=== PATIENT | female | born 1945 ===

== ENCOUNTER 2016-10-15 16:47 | Emergency (ER) | payer MEDICARE, SELFPAY ==
[2016-10-15 16:47] VITALS: BMI 28.3
[2016-10-15 17:15] VITALS: RESP 20
--- NOTE | 2016-10-15 17:57 | C.PDOC ---
History Of Present Illness <Kenton Floyd DO - Last Filed: 10/15/16 18:47> <MiguesavannahDaniel - Last Filed: 10/15/16 19:21> 71 year old patient, with a past medical history of hypertension, diabetes, osteoporosis, and hypercholesterolemia, presents to the ED complaining of bilateral hip and lower back pain s/p fall. Patient states she slipped on water and landed on her back. She denies any symptoms prior to the fall, head injury or loss of consciousness. (Lamonik VANGKenton) - HPI History Per: Patient History/Exam Limitations: no limitations Onset/Duration Of Symptoms: Mins (prior to arrival) Location Of Injury: Right: Hip, Left: Hip, Posterior: Back Severity: Mild Pain Scale Rating Of: 3 Recent travel outside of the [place]: No - Fall Fall:Prior To Injury: Slipped <Kenton Floyd DO - Last Filed: 10/15/16 18:47> <TanyaGinettemaris - Last Filed: 10/15/16 19:21> - HPI Time Seen by Provider: 10/15/16 17:44 Chief Complaint (Nursing): Trauma Past Medical History Reviewed: Historical Data, Nursing Documentation, Vital Signs - Medical History PMH: Diabetes, HTN, Hypercholesterolemia, Osteoporosis Family History: States: Unknown Family Hx - Social History Hx Tobacco Use: No Hx Alcohol Use: No Hx Substance Use: No - Immunization History Hx Tetanus Toxoid Vaccination: No Hx Influenza Vaccination: Yes Hx Pneumococcal Vaccination: Yes <Kenton Floyd DO - Last Filed: 10/15/16 18:47> Review Of Systems Except As Marked, All Systems Reviewed And Found Negative. Constitutional: Negative for: Other (head injury) Musculoskeletal: Positive for: Back Pain (lower), Other (bilateral hip pain) Neurological: Negative for: Other (loss of consciousness) <Kenton Floyd DO - Last Filed: 10/15/16 18:47> Physical Exam - Physical Exam Appears: Non-toxic, No Acute Distress Skin: Warm, Dry Head: Atraumatic, Normacephalic Eye(s): bilateral: Normal Inspection, PERRL, EOMI Neck: Normal ROM, No Midline Cervical Tenderness, No Paracervical Tenderness, Supple Chest: Symmetrical, No Tenderness Cardiovascular: Rhythm Regular Respiratory: Normal Breath Sounds, No Rales, No Rhonchi, No Wheezing Gastrointestinal/Abdominal: Soft, No Tenderness Back: No CVA Tenderness, No Vertebral Tenderness, Other (diffuse tenderness to the lumbosacral area and bilateral hip area; patient is able to flex hip with pain; (-)internal or external rotation of hips bilaterally) Extremity: Normal ROM Neurological/Psych: Oriented x3, Normal Speech, Normal Cognition, Normal Motor, Normal Sensation <Kenton Floyd DO - Last Filed: 10/15/16 18:47> ED Course And Treatment O2 Sat by Pulse Oximetry: 100 (room air) Pulse Ox Interpretation: Normal Progress Note: Plan: Tylenol, Flexeril, Hip with pelvis x-ray, LS spine x-ray <Kenton Floyd DO Last Filed: 10/15/16 18:47> Pulse Ox Interpretation: Normal - Other Rad pelvis/hips X-Ray: Interpreted by Me, Viewed By Me Interpretation: no fx or dislocation l/s X-Ray: Interpreted by Me, Viewed By Me Interpretation: no fx or dislocation Reevaluation Time: 19:14 Reassessment Condition: Improved <Daniel Martínez - Last Filed: 10/15/16 19:21> Disposition <Kenton Floyd DO Last Filed: 10/15/16 18:47> Counseled Patient/Family Regarding: Studies Performed, Diagnosis, Need For Followup - Disposition Disposition Time: 19:00 <Daniel Martínez - Last Filed: 10/15/16 19:21> - Disposition Referrals: Holli Back MD [Staff Provider] - Condition: FAIR Prescriptions: Cyclobenzaprine [Cyclobenzaprine HCl] 10 mg PO TID PRN #10 tab PRN Reason: spasms Instructions: Acute Low Back Pain (DC) Print Language: ENGLISH - Clinical Impression Clinical Impression: Back pain, Contusion of back, Lumbar strain Critical Care Time - Scribe Statement The provider has reviewed the documentation as recorded by the Scribe <Kenton Floyd DO - Last Filed: 10/15/16 18:47> <Daniel Martínez Last Filed: 10/15/16 19:21> - Scribe Statement Zeinab Barrera (Kenton Floyd DO) Provider Attestation: All medical record entries made by the Scribe were at my direction and personally dictated by me. I have reviewed the chart and agree that the record accurately reflects my personal performance of the history, physical exam, medical decision making, and the department course for this patient. I have also personally directed, reviewed, and agree with the discharge instructions and disposition. (Everett VANG,Kenton)
[2016-10-15 19:46] VITALS: BP 173/91; PULSE 78; TEMP 97.4; O2SAT 99
--- NOTE | 2016-10-16 08:31 | RAD ---
PROCEDURE: Radiographs of the Lumbar Spine. HISTORY: r/o fx COMPARISON: No prior. FINDINGS: BONES: Normal alignment. No listhesis. No fracture. DISC SPACES: Unremarkable. OTHER FINDINGS: None. IMPRESSION: Unremarkable radiographs of the lumbar spine.
--- NOTE | 2016-10-16 08:31 | RAD ---
PROCEDURE: Radiographs of the pelvis and bilateral hips HISTORY: r/o fx COMPARISON: None. FINDINGS: BONES: Pelvis: Unremarkable. Right hip:Unremarkable. Left hip:Unremarkable. JOINTS: Right hip: Unremarkable. Left hip: Unremarkable. Sacroiliac Joints: Unremarkable. Pubic symphysis: Unremarkable. SOFT TISSUES: Normal. OTHER FINDINGS: None. IMPRESSION: Unremarkable radiographs of the hips and pelvis.
== END 2016-10-15 19:45 | disposition home or self-care (01) ==
LOC: C.ER 16:47
DX: S39.012A Strain of muscle, fascia and tendon of lower back, initial encounter (principal); S30.0XXA Contusion of lower back and pelvis, initial encounter; W01.0XXA Fall on same level from slipping, tripping and stumbling without subsequent striking against object, initial encounter; M81.0 Age-related osteoporosis without current pathological fracture; I10 Essential (primary) hypertension; E78.00 Pure hypercholesterolemia, unspecified; E11.9 Type 2 diabetes mellitus without complications

== ENCOUNTER 2017-04-21 15:34 | Inpatient (IN) | payer MEDICAID, MEDICARE, OTHER ==
[2017-04-21 16:33] VITALS: BMI 37.1
[2017-04-21] MEDS ORDERED: Dextrose 50% SYRINGE Inj (50 ml) IVP STA ×2 (17:00)
--- NOTE | 2017-04-21 17:08 | C.PDOC ---
History Of Present Illness 71 yr old female with PMhx of CAD, s/p SC/PCI 5 years ago, HTN and DM, sent to the ER by Dr. Bustamante for an episode of left sided chest pain during the siderographer. CP was pressurelike, raidated to her back and left arm, and was associated with mild SOB. Episode lasted approx 20 minutes. Patient currently denies chest pain and SOB, fever, cough, nausea, vomiting, abdominal pain. PMD Dr. Back Time Seen by Provider: 04/21/17 15:58 Chief Complaint (Nursing): Chest Pain History Per: Patient History/Exam Limitations: no limitations Onset/Duration Of Symptoms: Sudden Onset (Since morning) Current Symptoms Are (Timing): Gone Severity: Moderate Quality: Pressure, "Pain" Associated Symptoms: Dyspnea Past Medical History Reviewed: Historical Data, Nursing Documentation, Vital Signs Vital Signs: Last Vital Signs Temp 97.8 F 04/21/17 16:40 Pulse 76 04/21/17 18:38 Resp 20 04/21/17 18:38 BP 144/67 04/21/17 18:38 Pulse Ox 100 04/21/17 18:38 - Medical History PMH: Diabetes, HTN, Hypercholesterolemia, Osteoporosis - [facility] Procedures CORONAR ARTERIOGR-2 CATH (03/26/14) INSERTION OF TWO VASCULAR STENTS (03/26/14) INSRT OF DRUG-ELUTING CORON ARTERY STENTS(S) (03/26/14) LEFT HEART CARDIAC CATH (03/26/14) LT HEART ANGIOCARDIOGRAM (03/26/14) PERCUTANEOUS TRANSLUMINAL CORONARY ANGIOPLASTY [PTCA] (03/26/14) PROCEDURE ON SINGLE VESSEL (03/26/14) PROCTOTOMY (11/13/13) Family History: States: No Known Family Hx - Social History Hx Tobacco Use: No Hx Alcohol Use: No Hx Substance Use: No - Immunization History Hx Tetanus Toxoid Vaccination: No Hx Influenza Vaccination: Yes Hx Pneumococcal Vaccination: Yes Review Of Systems Except As Marked, All Systems Reviewed And Found Negative. Constitutional: Negative for: Fever Cardiovascular: Positive for: Chest Pain (None now) Respiratory: Positive for: Shortness of Breath (None now). Negative for: Cough Gastrointestinal: Negative for: Nausea, Vomiting, Abdominal Pain, Diarrhea Skin: Negative for: Rash Neurological: Negative for: Weakness, Numbness Physical Exam - Physical Exam Appears: Well, Non-toxic, No Acute Distress, Other ((+) Speaking in full sentences) Skin: Warm, Dry, No Rash Head: Normacephalic Oral Mucosa: Moist Cardiovascular: Rhythm Regular Respiratory: Rales (Mild rales at the bases), No Rhonchi, No Wheezing Gastrointestinal/Abdominal: Normal Exam, Bowel Sounds, Soft, No Tenderness Extremity: Normal ROM, No Pedal Edema, No Calf Tenderness Pulses: Left Dorsalis Pedis: Normal, Right Dorsalis Pedis: Normal Neurological/Psych: Oriented x3 ED Course And Treatment - Laboratory Results Result Diagrams: 04/21/17 17:41 04/21/17 17:17 ECG: Interpreted By Me, Viewed By Me ECG Rhythm: Sinus Rhythm Interpretation Of ECG: Normal axis. No acute ST/T wave chanegs. Rate From EC (BPM) O2 Sat by Pulse Oximetry: 98 (RA) Pulse Ox Interpretation: Normal - Radiology CXR: Interpreted by Me, Viewed By Me CXR Interpretation: Yes: No Acute Disease. No: Infiltrates Progress Note: PLAN: Blood work, CXR, EKG ordered and reviewed. Patient is ASA allergic - Plavix ordered. - Physician Consult Information Physician Contacted: Holli Back Outcome Of Conversation: Discussed patient with PMD, who agrees with telemetry admisison with Dr. Bustamante for cardiology. Disposition - Disposition Forms: [place] (Welsh) - Scribe Statement The provider has reviewed the documentation as recorded by the Scribe Sade Flores Provider Attestation: All medical record entries made by the Scribe were at my direction and personally dictated by me. I have reviewed the chart and agree that the record accurately reflects my personal performance of the history, physical exam, medical decision making, and the department course for this patient. I have also personally directed, reviewed, and agree with the discharge instructions and disposition.
[2017-04-21 17:46] LABS: BASO # 0.1 K/uL (0.0-0.2); BASO % 0.9 % (0.0-2.0); EOS # 0.3 K/uL (0.0-0.7); EOS % 2.9 % (0.0-4.0); HEMATOCRIT 31.9 % (34.0-47.0); LYMPH # 2.3 K/uL (1.0-4.3); LYMPH % 21.2 % (20.0-40.0); MEAN CELL VOLUME 80.1 fL (81.0-99.0); MEAN CORPUSCULAR HEMOGLOBIN 26.5 pg (27.0-31.0); MEAN CORPUSCULAR HGB CONC 33.1 g/dL (33.0-37.0); MEAN PLATELET VOLUME 9.8 fL (7.2-11.7); MONO # 0.5 K/uL (0.0-0.8); MONO % 4.7 % (0.0-10.0); RED CELL DISTRIBUTION WIDTH 15.2 % (11.5-14.5); WHITE BLOOD COUNT 10.6 K/uL (4.8-10.8)
[2017-04-21 19:02] LABS: ALB/GLOB RATIO 1.4 (1.0-2.1); ALKALINE PHOSPHATASE 91 U/L (38-126); ALT/SGPT 32 U/L (9-52); AST/SGOT 18 U/L (14-36); BILIRUBIN,TOTAL 0.8 mg/dL (0.2-1.3); BLOOD UREA NITROGEN 18 mg/dL (7-17); CALCIUM 8.6 mg/dl (8.6-10.4); CARBON DIOXIDE 22 mmol/L (22-30); CHLORIDE 95 mmol/L (98-107); GFR AFRICAN-AMERICAN > 60; GLUCOSE,RANDOM 308 mg/dL (65-105); POTASSIUM 3.7 mmol/L (3.6-5.2); SODIUM 132 mmol/L (132-148); TOTAL PROTEIN 7.6 g/dL (6.3-8.3)
[2017-04-21] MEDS ORDERED: (Novolog) Insulin Aspart, Recombinant 100 u/ml 10 ml vial ONE (22:33)
[2017-04-21] MEDS: (Novolog) Insulin Aspart, Recombinant 100 u/ml 10 ml vial SC SCH (22:38)
[2017-04-22 01:48] LABS: TROPONIN I 0.014 ng/mL (0.00-0.120)
[2017-04-22 05:37] LABS: BASO # 0.1 K/uL (0.0-0.2); BASO % 0.7 % (0.0-2.0); EOS # 0.4 K/uL (0.0-0.7); EOS % 4.3 % (0.0-4.0); HEMATOCRIT 33.8 % (34.0-47.0); LYMPH # 2.1 K/uL (1.0-4.3); LYMPH % 24.2 % (20.0-40.0); MEAN CELL VOLUME 80.1 fL (81.0-99.0); MEAN CORPUSCULAR HEMOGLOBIN 27.3 pg (27.0-31.0); MEAN PLATELET VOLUME 9.9 fL (7.2-11.7); MONO # 0.5 K/uL (0.0-0.8); RED CELL DISTRIBUTION WIDTH 14.9 % (11.5-14.5); WHITE BLOOD COUNT 8.6 K/uL (4.8-10.8)
[2017-04-22 06:08] LABS: IRON 44 ug/dL (37-170)
[2017-04-22 06:33] LABS: BLOOD UREA NITROGEN 17 mg/dL (7-17); CARBON DIOXIDE 25 mmol/L (22-30); CHLORIDE 98 mmol/L (98-107); CHOLESTEROL 135 mg/dL (0-199); GFR AFRICAN-AMERICAN > 60; GLUCOSE,RANDOM 232 mg/dL (65-105); POTASSIUM 3.8 mmol/L (3.6-5.2); SODIUM 133 mmol/L (132-148)
[2017-04-22] MEDS ORDERED: Sodium Chloride 0.45% 1,000 ML IV SCH (08:45)
--- NOTE | 2017-04-22 08:56 | RAD ---
PROCEDURE: CHEST RADIOGRAPH, 1 VIEW HISTORY: cp COMPARISON: Chest radiograph dated 11/13/2016. FINDINGS: LUNGS: Clear. PLEURA: No pneumothorax or pleural fluid seen. CARDIOVASCULAR: Atherosclerotic aortic calcifications. Unremarkable cardiomediastinal silhouette. OSSEOUS STRUCTURES: Degenerative changes. VISUALIZED UPPER ABDOMEN: Normal. OTHER FINDINGS: None. IMPRESSION: No active disease.
[2017-04-22] MEDS: (Novolog) Insulin Aspart, Recombinant 100 u/ml 10 ml vial SC SCH ×4 (09:08→21:35)
[2017-04-22] MEDS ORDERED: Home Med 1 UNIT (Sitagliptin Phos/Metformin Hcl [Janumet 50-1,000 Mg Tablet] 1 TAB) PO SCH (10:00)
[2017-04-22] MEDS ORDERED: Enoxaparin 40 mg Syringe SC SCH (10:00)
[2017-04-22] MEDS ORDERED: (Lantus) Insulin Glargine, Recombinant SC SCH (10:00)
[2017-04-22] MEDS: Enoxaparin 30 mg Syringe SC SCH (10:12)
[2017-04-22 10:18] LABS: TROPONIN I 0.017 ng/mL (0.00-0.120)
[2017-04-22] MEDS: Pantoprazole 40 mg EC Tab PO SCH (10:25)
[2017-04-22] MEDS ORDERED: (Novolog) Insulin Aspart, Recombinant 100 u/ml 10 ml vial ONE (11:43)
--- NOTE | 2017-04-22 16:40 | CP.PCM.HP ---
History of Present Illness - History of Present Illness History of Present Illness: CC: chest pain z HPI; Pt is a 71 year old female with ho of [place] who was went by Dr. Bustamante from his office for eval of chest pain. PHMX. Atopic dermatitis Hypertension Polyosteoarthritis Vitamin D Deff Acute Gastritis Anxiety Type 2 DM Hypercholesterolemia Fatty Liver Proteinuria Osteoporosis Chronic Kidney Disease Other specified abdominal uterine and vaginal bleeding Athscl heart disease of [place] Coronary Artery w/o ang pctrs Wedge compression fracture of T11-T12 vertebra Fam HX: Allergies: Aspirin Tramadol Social HX: Neg. Smoking Neg. ETOH Neg. Drugs Current Meds: Janumet 50mg-1,000mg 1 tab po BID Chlortalidone 25 mg 1 tab po qd Crestor 10 mg 1 tab po qhs Flovent HFA 220 mcg inhaler 2 puffs inhale BID Singulair 10 mg 1 tab po QD Ventolin HFA 90 mcg inhaler 1-2 puffs inhale 4x a day Levemir 100 unit/ml inject 40 units below the skin BID Amaryl 4mg 1 tab po BID Present on Admission - Present on Admission Any Indicators Present on Admission: No Review of Systems - Constitutional Constitutional: absent: Fatigue, Fever, Headache, Night Sweats - EENT Eyes: absent: Diplopia - Cardiovascular Cardiovascular: Chest Pain with Activity. absent: Rapid Heart Rate - Respiratory Respiratory: absent: Cough, Hemoptysis Past Patient History - Past Medical History & Family History Past Medical History?: Yes - Past Social History Smoking Status: Never Smoked - CARDIAC Hx Heart Attack: Yes (2011) Hx Hypercholesterolemia: Yes Hx Hypertension: Yes - PULMONARY Hx Respiratory Disorders: No - NEUROLOGICAL Hx Neurological Disorder: No - HEENT Hx HEENT Problems: No - RENAL Hx Chronic Kidney Disease: No - ENDOCRINE/METABOLIC Hx Diabetes Mellitus Type 2: Yes - HEMATOLOGICAL/ONCOLOGICAL Hx Blood Transfusions: No Hx Blood Transfusion Reaction: No - INTEGUMENTARY Hx Dermatological Problems: No - MUSCULOSKELETAL/RHEUMATOLOGICAL Hx Falls: Yes Hx Osteoporosis: Yes - GASTROINTESTINAL Hx Gastrointestinal Disorders: No - GENITOURINARY/GYNECOLOGICAL Hx Genitourinary Disorders: No - PSYCHIATRIC Hx Substance Use: No - SURGICAL HISTORY Hx Surgeries: Yes (cardiac cath PCI) Hx Hysterectomy: Yes - ANESTHESIA Hx Anesthesia: Yes Hx Anesthesia Reactions: No Hx Malignant Hyperthermia: No Meds Allergies/Adverse Reactions: Allergies Allergy/AdvReac Type Severity Reaction Status Date / Time aspirin Allergy Verified 04/21/17 16:26 tramadol Allergy Verified 04/21/17 16:26 Physical Exam - Constitutional Appears: No Acute Distress - Eye Exam Eye Exam: EOMI, Normal appearance - ENT Exam ENT Exam: Mucous Membranes Moist, Normal Exam - Neck Exam Neck exam: Positive for: Normal Inspection - Respiratory Exam Respiratory Exam: Clear to Auscultation Bilateral, NORMAL BREATHING PATTERN - Cardiovascular Exam Cardiovascular Exam: RRR, +S1, +S2. absent: Rubs - GI/Abdominal Exam GI & Abdominal Exam: Normal Bowel Sounds, Soft - Neurological Exam Neurological exam: Oriented x3 Results - Vital Signs Recent Vital Signs: Last Vital Signs Temp 97.7 F 04/22/17 14:20 Pulse 85 04/22/17 14:20 Resp 16 04/22/17 14:20 BP 117/67 04/22/17 14:20 Pulse Ox 95 04/22/17 14:20 - Labs Result Diagrams: 04/22/17 05:35 04/24/17 06:49 Labs: Laboratory Results - last 24 hr 04/21/17 04/21/17 04/21/17 17:17 17:41 17:41 WBC 10.6 RBC 3.98 Hgb 10.6 L D Hct 31.9 L MCV 80.1 L MCH 26.5 L MCHC 33.1 RDW 15.2 H Plt Count 226 MPV 9.8 Neut % (Auto) 70.3 Lymph % (Auto) 21.2 Cottle % (Auto) 4.7 Eos % (Auto) 2.9 Baso % (Auto) 0.9 Neut # 7.5 H Lymph # 2.3 Cottle # 0.5 Eos # 0.3 Baso # 0.1 PT 11.1 INR 1.0 APTT 30 Sodium 132 Potassium 3.7 Chloride 95 L Carbon Dioxide 22 Anion Gap 18 BUN 18 H Creatinine 0.8 Est GFR ( Amer) > 60 Est GFR (Non-Af Amer) > 60 POC Glucose (mg/dL) Random Glucose 308 H Calcium 8.6 Iron TIBC % Saturation Ferritin Total Bilirubin 0.8 AST 18 ALT 32 Alkaline Phosphatase 91 Total Creatine Kinase 136 H CK-MB (Mass) 2.07 Troponin I 0.0140 NT-Pro-B Natriuret Pep 119 Total Protein 7.6 Albumin 4.4 Globulin 3.2 Albumin/Globulin Ratio 1.4 Triglycerides Cholesterol LDL Cholesterol Direct HDL Cholesterol 04/21/17 04/22/17 04/22/17 22:14 00:29 05:11 WBC RBC Hgb Hct MCV MCH MCHC RDW Plt Count MPV Neut % (Auto) Lymph % (Auto) Cottle % (Auto) Eos % (Auto) Baso % (Auto) Neut # Lymph # Cottle # Eos # Baso # PT INR APTT Sodium Potassium Chloride Carbon Dioxide Anion Gap BUN Creatinine Est GFR ( Amer) Est GFR (Non-Af Amer) POC Glucose (mg/dL) 227 H Random Glucose Calcium Iron 44 TIBC 308 % Saturation 14 L Ferritin Total Bilirubin AST ALT Alkaline Phosphatase Total Creatine Kinase 117 CK-MB (Mass) 1.48 Troponin I 0.0140 NT-Pro-B Natriuret Pep Total Protein Albumin Globulin Albumin/Globulin Ratio Triglycerides Cholesterol LDL Cholesterol Direct HDL Cholesterol 04/22/17 04/22/17 04/22/17 05:11 05:35 08:02 WBC 8.6 RBC 4.22 Hgb 11.5 Hct 33.8 L MCV 80.1 L MCH 27.3 MCHC 34.0 RDW 14.9 H Plt Count 203 MPV 9.9 Neut % (Auto) 64.8 Lymph % (Auto) 24.2 Cottle % (Auto) 6.0 Eos % (Auto) 4.3 H Baso % (Auto) 0.7 Neut # 5.6 Lymph # 2.1 Cottle # 0.5 Eos # 0.4 Baso # 0.1 PT INR APTT Sodium 133 Potassium 3.8 Chloride 98 Carbon Dioxide 25 Anion Gap 13 BUN 17 Creatinine 0.7 Est GFR ( Amer) > 60 Est GFR (Non-Af Amer) > 60 POC Glucose (mg/dL) 269 H Random Glucose 232 H Calcium 9.0 Iron TIBC % Saturation Ferritin 78.3 Total Bilirubin AST ALT Alkaline Phosphatase Total Creatine Kinase CK-MB (Mass) Troponin I NT-Pro-B Natriuret Pep Total Protein Albumin Globulin Albumin/Globulin Ratio Triglycerides 280 H Cholesterol 135 LDL Cholesterol Direct 62 HDL Cholesterol 39 04/22/17 04/22/17 09:31 11:13 WBC RBC Hgb Hct MCV MCH MCHC RDW Plt Count MPV Neut % (Auto) Lymph % (Auto) Cottle % (Auto) Eos % (Auto) Baso % (Auto) Neut # Lymph # Cottle # Eos # Baso # PT INR APTT Sodium Potassium Chloride Carbon Dioxide Anion Gap BUN Creatinine Est GFR ( Amer) Est GFR (Non-Af Amer) POC Glucose (mg/dL) 233 H Random Glucose Calcium Iron TIBC % Saturation Ferritin Total Bilirubin AST ALT Alkaline Phosphatase Total Creatine Kinase 103 CK-MB (Mass) 1.29 Troponin I 0.0170 NT-Pro-B Natriuret Pep Total Protein Albumin Globulin Albumin/Globulin Ratio Triglycerides Cholesterol LDL Cholesterol Direct HDL Cholesterol Assessment & Plan - Assessment and Plan (Free Text) Assessment: admit to telemetry Dr. Bustamante consulted he saw her in his office bp controllled diabetes adjust meds hyperglycemia dvt and gi prophylax oxygen martin ekg
--- NOTE | 2017-04-22 17:19 | CP.PCM.PN ---
Subjective - Date & Time of Evaluation Date of Evaluation: 04/22/17 Time of Evaluation: 22:00 - Subjective Subjective: Pt has ruled out for acute IL awaiting for cath by DR. Bustamante Pt fees better no complaints elevated sugars Objective - Vital Signs/Intake and Output Vital Signs (last 24 hours): Temp Pulse Resp BP Pulse Ox 97.7 F 85 16 117/67 95 04/22/17 14:20 04/22/17 14:20 04/22/17 14:20 04/22/17 14:20 04/22/17 14:20 - Medications Medications: Current Medications Acetaminophen (Tylenol 325mg Tab) 650 mg PO Q6 PRN PRN Reason: Pain, moderate (4-7) Aspirin (Aspirin Chewable) 81 mg PO DAILY [facility] Last Admin: 04/22/17 10:25 Dose: Not Given Chlorthalidone (Hygroton) 25 mg PO DAILY [facility] Last Admin: 04/22/17 10:25 Dose: 25 mg Enoxaparin Sodium (Lovenox) 30 mg SC DAILY [facility] Last Admin: 04/22/17 10:12 Dose: Not Given Insulin Aspart (Novolog) 0 unit SC ACHS [facility] PRN Reason: Protocol Last Admin: 04/22/17 11:45 Dose: 2 unit Insulin Glargine (Lantus) 20 unit SC BID [facility] Last Admin: 04/22/17 10:25 Dose: Not Given [facility] Pantoprazole Sodium (Protonix Ec Tab) 40 mg PO DAILY [facility] Last Admin: 04/22/17 10:25 Dose: 40 mg Rosuvastatin Calcium (Crestor) 10 mg PO HS [facility] Last Admin: 04/21/17 22:28 Dose: 10 mg Sitagliptin Phosphate (Januvia) 50 mg PO DAILY [facility] - Labs Labs: 04/22/17 05:35 04/22/17 05:11 PT 11.1 SECONDS (9.7-12.2) 04/21/17 17:41 INR 1.0 04/21/17 17:41 APTT 30 SECONDS (21-34) 04/21/17 17:41 - Constitutional Appears: Non-toxic - Eye Exam Eye Exam: Normal appearance, PERRL - ENT Exam ENT Exam: Mucous Membranes Moist - Respiratory Exam Respiratory Exam: NORMAL BREATHING PATTERN - Cardiovascular Exam Cardiovascular Exam: REGULAR RHYTHM, RRR, +S1, +S2. absent: JVD - Extremities Exam Extremities Exam: absent: Pedal Edema Assessment and Plan - Assessment and Plan (Free Text) Assessment: uncontrolled diabetes off metformin pending cath add janvuia add novolog ac meals ldl is good cad; cath per cardio on fluids starting midnight to decrease risk of renal damage
[2017-04-22] MEDS: (Lantus) Insulin Glargine, Recombinant SC SCH (17:36)
--- NOTE | 2017-04-22 22:34 | CP.PCM.CON ---
History of Present Illness - History of Present Illness History of Present Illness: 71 F wth Hx of [place] stents, HTN< DM II admitted for unstable angina For cardiac cath tomorrow Past Patient History - Past Medical History & Family History Past Medical History?: Yes - Past Social History Smoking Status: Never Smoked - CARDIAC Hx Heart Attack: Yes (2011) Hx Hypercholesterolemia: Yes Hx Hypertension: Yes - PULMONARY Hx Respiratory Disorders: No - NEUROLOGICAL Hx Neurological Disorder: No - HEENT Hx HEENT Problems: No - RENAL Hx Chronic Kidney Disease: No - ENDOCRINE/METABOLIC Hx Diabetes Mellitus Type 2: Yes - HEMATOLOGICAL/ONCOLOGICAL Hx Blood Transfusions: No Hx Blood Transfusion Reaction: No - INTEGUMENTARY Hx Dermatological Problems: No - MUSCULOSKELETAL/RHEUMATOLOGICAL Hx Falls: Yes Hx Osteoporosis: Yes - GASTROINTESTINAL Hx Gastrointestinal Disorders: No - GENITOURINARY/GYNECOLOGICAL Hx Genitourinary Disorders: No - PSYCHIATRIC Hx Substance Use: No - SURGICAL HISTORY Hx Surgeries: Yes (cardiac cath PCI) Hx Hysterectomy: Yes - ANESTHESIA Hx Anesthesia: Yes Hx Anesthesia Reactions: No Hx Malignant Hyperthermia: No Meds Allergies/Adverse Reactions: Allergies Allergy/AdvReac Type Severity Reaction Status Date / Time aspirin Allergy Verified 04/21/17 16:26 tramadol Allergy Verified 04/21/17 16:26 - Medications Medications: Current Medications Acetaminophen (Tylenol 325mg Tab) 650 mg PO Q6 PRN PRN Reason: Pain, moderate (4-7) Aspirin (Aspirin Chewable) 81 mg PO DAILY [facility] Last Admin: 04/22/17 10:25 Dose: Not Given Chlorthalidone (Hygroton) 25 mg PO DAILY [facility] Last Admin: 04/22/17 10:25 Dose: 25 mg Enoxaparin Sodium (Lovenox) 30 mg SC DAILY [facility] Last Admin: 04/22/17 10:12 Dose: Not Given Insulin Aspart (Novolog) 0 unit SC ACHS [facility] PRN Reason: Protocol Last Admin: 04/22/17 21:35 Dose: Not Given Insulin Aspart (Novolog) 6 unit SC TIDAC [facility] Insulin Glargine (Lantus) 30 unit SC BID [facility] Last Admin: 04/22/17 17:36 Dose: 30 units Metformin HCl (Glucophage) 1,000 mg PO BIDCC [facility] Pantoprazole Sodium (Protonix Ec Tab) 40 mg PO DAILY [facility] Last Admin: 04/22/17 10:25 Dose: 40 mg Rosuvastatin Calcium (Crestor) 10 mg PO HS [facility] Last Admin: 04/22/17 21:37 Dose: 10 mg Sitagliptin Phosphate (Januvia) 50 mg PO DAILY [facility] Results - Vital Signs Recent Vital Signs: Last Vital Signs Temp 97.9 F 04/22/17 15:30 Pulse 79 04/22/17 18:00 Resp 20 04/22/17 15:30 BP 118/60 04/22/17 15:30 Pulse Ox 98 04/22/17 15:30 - Labs Result Diagrams: 04/22/17 05:35 04/22/17 05:11 Labs: Laboratory Results - last 24 hr 04/22/17 04/22/17 04/22/17 00:29 05:11 05:11 WBC RBC Hgb Hct MCV MCH MCHC RDW Plt Count MPV Neut % (Auto) Lymph % (Auto) [place] % (Auto) Eos % (Auto) Baso % (Auto) Neut # Lymph # [place] # Eos # Baso # Sodium 133 Potassium 3.8 Chloride 98 Carbon Dioxide 25 Anion Gap 13 BUN 17 Creatinine 0.7 Est GFR ( Amer) > 60 Est GFR (Non-Af Amer) > 60 POC Glucose (mg/dL) Random Glucose 232 H Calcium 9.0 Iron 44 TIBC 308 % Saturation 14 L Ferritin 78.3 Total Creatine Kinase 117 CK-MB (Mass) 1.48 Troponin I 0.0140 Triglycerides 280 H Cholesterol 135 LDL Cholesterol Direct 62 HDL Cholesterol 39 04/22/17 04/22/17 04/22/17 05:35 08:02 09:31 WBC 8.6 RBC 4.22 Hgb 11.5 Hct 33.8 L MCV 80.1 L MCH 27.3 MCHC 34.0 RDW 14.9 H Plt Count 203 MPV 9.9 Neut % (Auto) 64.8 Lymph % (Auto) 24.2 [place] % (Auto) 6.0 Eos % (Auto) 4.3 H Baso % (Auto) 0.7 Neut # 5.6 Lymph # 2.1 [place] # 0.5 Eos # 0.4 Baso # 0.1 Sodium Potassium Chloride Carbon Dioxide Anion Gap BUN Creatinine Est GFR ( Amer) Est GFR (Non-Af Amer) POC Glucose (mg/dL) 269 H Random Glucose Calcium Iron TIBC % Saturation Ferritin Total Creatine Kinase 103 CK-MB (Mass) 1.29 Troponin I 0.0170 Triglycerides Cholesterol LDL Cholesterol Direct HDL Cholesterol 04/22/17 04/22/17 04/22/17 11:13 17:21 21:27 WBC RBC Hgb Hct MCV MCH MCHC RDW Plt Count MPV Neut % (Auto) Lymph % (Auto) [place] % (Auto) Eos % (Auto) Baso % (Auto) Neut # Lymph # [place] # Eos # Baso # Sodium Potassium Chloride Carbon Dioxide Anion Gap BUN Creatinine Est GFR ( Amer) Est GFR (Non-Af Amer) POC Glucose (mg/dL) 233 H 449 H* 220 H Random Glucose Calcium Iron TIBC % Saturation Ferritin Total Creatine Kinase CK-MB (Mass) Troponin I Triglycerides Cholesterol LDL Cholesterol Direct HDL Cholesterol
--- NOTE | 2017-04-23 07:16 | CARD ---
APPROVED REPORT EXAM: Two-dimensional and M-mode echocardiogram with Doppler and color Doppler. Other Information Quality : GoodRhythm : INDICATION Acute TX Chest Pain RISK FACTORS Diabetes 2D DIMENSIONS IVSd0.7 (0.7-1.1cm)LVDd3.9 (3.9-5.9cm) PWd1.0 (0.7-1.1cm)LVDs3.0 (2.5-4.0cm) FS (%) 21.9 %LVEF (%)55.0 (>50%) M-Mode DIMENSIONS Left Atrium (MM)3.03 (2.5-4.0cm)Aortic Root2.80 (2.2-3.7cm) Aortic Cusp Exc.1.53 (1.5-2.0cm) Mitral Valve MV E Vgsjlyea30.6cm/sMV A Zphqwnnt142.3cm/sE/A ratio0.6 TDI E/Lateral E'0.0E/Medial E'0.0 Tricuspid Valve TR Peak [id number]/sTR Peak Gr.[id number] LEFT VENTRICLE The left ventricle is normal size. There is normal left ventricular wall thickness. Left ventricle systolic function is normal. The Ejection Fraction is 50-55%. There is normal LV segmental wall motion. Tissue Doppler imaging reveals abnormal left ventricular diastolic dysfunction. RIGHT VENTRICLE The right ventricle is normal size. There is normal right ventricular wall thickness. The right ventricular systolic function is normal. ATRIA The left atrium size is normal. The right atrium size is normal. The interatrial septum is intact with no evidence for an atrial septal defect. AORTIC VALVE The aortic valve is normal in structure. No aortic regurgitation is present. There is no aortic valvular stenosis. MITRAL VALVE The mitral valve is normal in structure. There is no evidence of mitral valve prolapse. There is no mitral valve stenosis. There is no mitral valve regurgitation noted. TRICUSPID VALVE The tricuspid valve is normal in structure. There is mild tricuspid regurgitation. Right ventricular systolic pressure is estimated at 30-40 mmHg. There is mild pulmonary hypertension. PULMONIC VALVE The pulmonic valve is not well visualized. There is no pulmonic valvular regurgitation. GREAT VESSELS The aortic root is normal in size. PERICARDIAL EFFUSION There is no significant pericardial effusion. <Conclusion> Left ventricle systolic function is normal. The Ejection Fraction is 50-55%. Diastolic dysfunction. No aortic regurgitation is present. There is no mitral valve regurgitation noted. There is mild tricuspid regurgitation. There is mild pulmonary hypertension. There is no pulmonic valvular regurgitation.
[2017-04-23] MEDS: (Novolog) Insulin Aspart, Recombinant 100 u/ml 10 ml vial SC SCH ×7 (08:10→21:15)
[2017-04-23 09:04] VITALS: RESP 20
[2017-04-23] MEDS: Enoxaparin 30 mg Syringe SC SCH (10:55)
[2017-04-23] MEDS: Pantoprazole 40 mg EC Tab PO SCH (10:55)
[2017-04-23] MEDS: (Lantus) Insulin Glargine, Recombinant SC SCH ×2 (11:00→19:05)
[2017-04-23] MEDS ORDERED: Midazolam 2 MG/2 ML VIAL ONE (12:07)
[2017-04-23] MEDS ORDERED: Iohexol 350mg/ml 100 ML ONE ×2 (12:15→12:35)
--- NOTE | 2017-04-23 12:53 | CP.PCM.PN ---
Subjective - Date & Time of Evaluation Date of Evaluation: 04/23/17 Time of Evaluation: 12:50 - Subjective Subjective: Patient s/p Cath 1. L Main: Ostial 20% 2. LAD: Mid 30% stenosis 3. L Cx: Prior stent patent. OM1 50% 4. RCA: Proximal 80% calcific stensis 5. EF 60% Plan: Complex RCA intervention with atherectomy if patient and family agreeable otherwise recommend medical therapy Will discuss Objective - Vital Signs/Intake and Output Vital Signs (last 24 hours): Temp Pulse Resp BP Pulse Ox 98.1 F 72 20 152/70 H 98 04/23/17 09:03 04/23/17 09:03 04/23/17 09:03 04/23/17 09:03 04/23/17 09:03 - Medications Medications: Current Medications Acetaminophen (Tylenol 325mg Tab) 650 mg PO Q6 PRN PRN Reason: Pain, moderate (4-7) Aspirin (Aspirin Chewable) 81 mg PO DAILY [facility] Last Admin: 04/23/17 11:03 Dose: Not Given Chlorthalidone (Hygroton) 25 mg PO DAILY [facility] Last Admin: 04/23/17 10:55 Dose: 25 mg Enoxaparin Sodium (Lovenox) 30 mg SC DAILY [facility] Last Admin: 04/22/17 10:12 Dose: Not Given Insulin Aspart (Novolog) 0 unit SC ACHS [facility] PRN Reason: Protocol Last Admin: 04/23/17 08:10 Dose: Not Given Insulin Aspart (Novolog) 6 unit SC TIDAC [facility] Last Admin: 04/23/17 08:10 Dose: Not Given Insulin Glargine (Lantus) 30 unit SC BID [facility] Last Admin: 04/23/17 11:00 Dose: Not Given Metformin HCl (Glucophage) 1,000 mg PO BIDCC [facility] Last Admin: 04/23/17 10:56 Dose: 1,000 mg Pantoprazole Sodium (Protonix Ec Tab) 40 mg PO DAILY [facility] Last Admin: 04/23/17 10:55 Dose: 40 mg Rosuvastatin Calcium (Crestor) 10 mg PO HS [facility] Last Admin: 04/22/17 21:37 Dose: 10 mg Sitagliptin Phosphate (Januvia) 50 mg PO DAILY [facility] Last Admin: 04/23/17 10:55 Dose: 50 mg - Labs Labs: 04/22/17 05:35 04/22/17 05:11 PT 11.1 SECONDS (9.7-12.2) 04/21/17 17:41 INR 1.0 04/21/17 17:41 APTT 30 SECONDS (21-34) 04/21/17 17:41
[2017-04-23] MEDS: Sodium Chloride 0.45% 1,000 ML IV SCH (15:10)
--- NOTE | 2017-04-23 18:02 | CP.PCM.PN ---
Subjective - Date & Time of Evaluation Date of Evaluation: 04/23/17 Time of Evaluation: 18:02 - Subjective Subjective: Pt sp cath feels well no pain no sob no bleeding sugars elevated now but suspect missed some of her meds Objective - Vital Signs/Intake and Output Vital Signs (last 24 hours): Temp Pulse Resp BP Pulse Ox 97.5 F L 80 20 106/66 96 04/23/17 16:34 04/23/17 16:34 04/23/17 16:34 04/23/17 16:34 04/23/17 16:34 - Medications Medications: Current Medications Acetaminophen (Tylenol 325mg Tab) 650 mg PO Q6 PRN PRN Reason: Pain, moderate (4-7) Aspirin (Aspirin Chewable) 81 mg PO DAILY [facility] Last Admin: 04/23/17 11:03 Dose: Not Given Chlorthalidone (Hygroton) 25 mg PO DAILY [facility] Last Admin: 04/23/17 10:55 Dose: 25 mg Clopidogrel Bisulfate (Plavix) 75 mg PO DAILY [facility] Last Admin: 04/23/17 14:16 Dose: 75 mg Enoxaparin Sodium (Lovenox) 30 mg SC DAILY [facility] Last Admin: 04/23/17 10:55 Dose: Not Given Sodium Chloride (Sodium Chloride 0.45%) 1,000 mls @ 70 mls/hr IV .[id number] [facility] Stop: 04/24/17 23:59 Last Admin: 04/23/17 15:10 Dose: 70 mls/hr Insulin Aspart (Novolog) 0 unit SC ACHS [facility] PRN Reason: Protocol Last Admin: 04/23/17 14:14 Dose: 2 unit Insulin Aspart (Novolog) 6 unit SC TIDAC [facility] Last Admin: 04/23/17 14:15 Dose: 6 unit Insulin Glargine (Lantus) 30 unit SC BID [facility] Last Admin: 04/23/17 11:00 Dose: Not Given Metformin HCl (Glucophage) 1,000 mg PO BIDCC [facility] Last Admin: 04/23/17 10:56 Dose: 1,000 mg Pantoprazole Sodium (Protonix Ec Tab) 40 mg PO DAILY [facility] Last Admin: 04/23/17 10:55 Dose: 40 mg Rosuvastatin Calcium (Crestor) 10 mg PO HS [facility] Last Admin: 04/22/17 21:37 Dose: 10 mg Rosuvastatin Calcium (Crestor) 10 mg PO HS [facility] Sitagliptin Phosphate (Januvia) 50 mg PO DAILY [facility] Last Admin: 04/23/17 10:55 Dose: 50 mg - Labs Labs: 04/22/17 05:35 04/22/17 05:11 PT 11.1 SECONDS (9.7-12.2) 04/21/17 17:41 INR 1.0 04/21/17 17:41 APTT 30 SECONDS (21-34) 04/21/17 17:41 - Constitutional Appears: Non-toxic, No Acute Distress - Eye Exam Eye Exam: Normal appearance - ENT Exam ENT Exam: Mucous Membranes Moist - Neck Exam Neck Exam: Normal Inspection - Respiratory Exam Respiratory Exam: Clear to Ausculation Bilateral - Cardiovascular Exam Cardiovascular Exam: REGULAR RHYTHM, +S1, +S2. absent: JVD, +S4 - GI/Abdominal Exam GI & Abdominal Exam: Normal Bowel Sounds Assessment and Plan - Assessment and Plan (Free Text) Assessment: CAD reviwed preliminary cath possible RCA intervention per dr. Bustamante ef 60% will continue ivf and hold metformin until after Angioplasty diabetes up today but missed some meds will cont to monitor ashtma stable bmp in AM
[2017-04-24] MEDS: Sodium Chloride 0.45% 1,000 ML IV SCH (05:50)
[2017-04-24 07:44] LABS: BLOOD UREA NITROGEN 18 mg/dL (7-17); CALCIUM 8.4 mg/dl (8.6-10.4); CARBON DIOXIDE 27 mmol/L (22-30); CHLORIDE 98 mmol/L (98-107); GFR AFRICAN-AMERICAN > 60; GLUCOSE,RANDOM 167 mg/dL (65-105); POTASSIUM 4.1 mmol/L (3.6-5.2); SODIUM 136 mmol/L (132-148)
[2017-04-24] MEDS: Pantoprazole 40 mg EC Tab PO SCH (09:47)
[2017-04-24] MEDS: Enoxaparin 30 mg Syringe SC SCH (09:47)
[2017-04-24] MEDS: (Lantus) Insulin Glargine, Recombinant SC SCH ×2 (09:48→18:04)
[2017-04-24] MEDS: (Novolog) Insulin Aspart, Recombinant 100 u/ml 10 ml vial SC SCH ×7 (09:48→21:18)
--- NOTE | 2017-04-24 17:47 | CP.PCM.PN ---
Subjective - Date & Time of Evaluation Date of Evaluation: 04/24/17 Time of Evaluation: 17:47 - Subjective Subjective: PT feels well no chest pain or sob wants to go home, does not want to stay in the hospital until Friday for procedure. Objective - Vital Signs/Intake and Output Vital Signs (last 24 hours): Temp Pulse Resp BP Pulse Ox 98.9 F 74 20 127/73 97 04/24/17 16:03 04/24/17 16:03 04/24/17 16:03 04/24/17 16:03 04/24/17 16:03 Intake and Output: 04/24/17 04/24/17 06:59 18:59 Intake Total 960 Balance 960 - Medications Medications: Current Medications Acetaminophen (Tylenol 325mg Tab) 650 mg PO Q6 PRN PRN Reason: Pain, moderate (4-7) Chlorthalidone (Hygroton) 25 mg PO DAILY [facility] Last Admin: 04/24/17 09:47 Dose: 25 mg Clopidogrel Bisulfate (Plavix) 75 mg PO DAILY [facility] Last Admin: 04/24/17 09:47 Dose: 75 mg Enoxaparin Sodium (Lovenox) 30 mg SC DAILY [facility] Last Admin: 04/24/17 09:47 Dose: 30 mg Sodium Chloride (Sodium Chloride 0.45%) 1,000 mls @ 70 mls/hr IV .[id number] [facility] Stop: 04/24/17 23:59 Last Admin: 04/24/17 05:50 Dose: 70 mls/hr Insulin Aspart (Novolog) 0 unit SC ACHS [facility] PRN Reason: Protocol Last Admin: 04/24/17 13:12 Dose: 3 unit Insulin Aspart (Novolog) 6 unit SC TIDAC [facility] Last Admin: 04/24/17 13:12 Dose: 6 unit Insulin Glargine (Lantus) 30 unit SC BID [facility] Last Admin: 04/24/17 09:48 Dose: 30 units Metformin HCl (Glucophage) 1,000 mg PO BIDCC [facility] Last Admin: 04/23/17 10:56 Dose: 1,000 mg Pantoprazole Sodium (Protonix Ec Tab) 40 mg PO DAILY [facility] Last Admin: 04/24/17 09:47 Dose: 40 mg Rosuvastatin Calcium (Crestor) 10 mg PO HS [facility] Last Admin: 04/23/17 21:20 Dose: 10 mg Sitagliptin Phosphate (Januvia) 50 mg PO DAILY [facility] Last Admin: 04/24/17 09:47 Dose: 50 mg - Labs Labs: 04/22/17 05:35 04/24/17 06:49 PT 11.1 SECONDS (9.7-12.2) 04/21/17 17:41 INR 1.0 04/21/17 17:41 APTT 30 SECONDS (21-34) 04/21/17 17:41 - Constitutional Appears: Well, Non-toxic - Eye Exam Eye Exam: Normal appearance - ENT Exam ENT Exam: Mucous Membranes Moist - Respiratory Exam Respiratory Exam: Clear to Ausculation Bilateral, NORMAL BREATHING PATTERN - Cardiovascular Exam Cardiovascular Exam: REGULAR RHYTHM, +S1, +S2 - GI/Abdominal Exam GI & Abdominal Exam: Normal Bowel Sounds - Extremities Exam Extremities Exam: absent: Joint Swelling Assessment and Plan - Assessment and Plan (Free Text) Assessment: CAD; awating for RCA procedure spoke to cardiologyst today getting authorization from insurance for transfer to [facility] patient may not agree to staying until Friday diabetes metfomin on hold pending cath added januvia today bp is good
[2017-04-25 08:38] VITALS: BP 125/79; TEMP 98; O2SAT 98
[2017-04-25] MEDS ORDERED: Influenza Vaccine 60 mcg/0.5 mL SYR (4YR UP) IM ONE (10:00)
[2017-04-25] MEDS: Enoxaparin 30 mg Syringe SC SCH (10:05)
[2017-04-25] MEDS: Pantoprazole 40 mg EC Tab PO SCH (10:06)
[2017-04-25] MEDS: (Lantus) Insulin Glargine, Recombinant SC SCH (10:07)
[2017-04-25] MEDS: (Novolog) Insulin Aspart, Recombinant 100 u/ml 10 ml vial SC SCH ×3 (10:07→12:54)
[2017-04-25 12:20] VITALS: PULSE 76
--- NOTE | 2017-04-25 13:50 | CP.PCM.PN ---
Subjective - Date & Time of Evaluation Date of Evaluation: 04/25/17 Time of Evaluation: 12:45 - Subjective Subjective: Patient seen and examined today, awake, alert, ox3, denies any chest pain, sob, palpitations, dizziness, N/V ,, wants to go home today and doesn't want to stay and do the procedure( [place] [facility] no overnight events recorded on monitor no over night events reported by RN Objective - Vital Signs/Intake and Output Vital Signs (last 24 hours): Temp Pulse Resp BP Pulse Ox 98.0 F 76 20 125/79 98 04/25/17 07:00 04/25/17 12:00 04/25/17 07:00 04/25/17 07:00 04/25/17 07:00 Intake and Output: 04/25/17 04/25/17 06:59 18:59 Intake Total 660 Balance 660 - Medications Medications: Current Medications Acetaminophen (Tylenol 325mg Tab) 650 mg PO Q6 PRN PRN Reason: Pain, moderate (4-7) Chlorthalidone (Hygroton) 25 mg PO DAILY [facility] Last Admin: 04/25/17 10:06 Dose: 25 mg Clopidogrel Bisulfate (Plavix) 75 mg PO DAILY [facility] Last Admin: 04/25/17 10:06 Dose: 75 mg Enoxaparin Sodium (Lovenox) 30 mg SC DAILY [facility] Last Admin: 04/25/17 10:05 Dose: 30 mg Insulin Aspart (Novolog) 0 unit SC ACHS [facility] PRN Reason: Protocol Last Admin: 04/25/17 12:54 Dose: 1 unit Insulin Aspart (Novolog) 6 unit SC TIDAC [facility] Last Admin: 04/25/17 12:53 Dose: 6 unit Insulin Glargine (Lantus) 30 unit SC BID [facility] Last Admin: 04/25/17 10:07 Dose: 30 units Metformin HCl (Glucophage) 1,000 mg PO BIDCC [facility] Last Admin: 04/23/17 10:56 Dose: 1,000 mg Pantoprazole Sodium (Protonix Ec Tab) 40 mg PO DAILY [facility] Last Admin: 04/25/17 10:06 Dose: 40 mg Rosuvastatin Calcium (Crestor) 10 mg PO HS [facility] Last Admin: 04/24/17 22:20 Dose: 10 mg Sitagliptin Phosphate (Januvia) 50 mg PO DAILY [facility] Last Admin: 04/25/17 10:06 Dose: 50 mg Sitagliptin Phosphate (Januvia) 100 mg PO DAILY [facility] Last Admin: 04/25/17 10:05 Dose: 100 mg - Labs Labs: 04/22/17 05:35 04/24/17 06:49 PT 11.1 SECONDS (9.7-12.2) 04/21/17 17:41 INR 1.0 04/21/17 17:41 APTT 30 SECONDS (21-34) 04/21/17 17:41 - Constitutional Appears: Well, No Acute Distress - Respiratory Exam Respiratory Exam: Clear to Ausculation Bilateral, NORMAL BREATHING PATTERN - Cardiovascular Exam Cardiovascular Exam: REGULAR RHYTHM, +S1, +S2 - Neurological Exam Neurological Exam: Alert, Awake, Oriented x3 Assessment and Plan - Assessment and Plan (Free Text) Assessment: A/P 71 yr old female with PMhx of CAD, s/p TN/PCI 5 years ago, HTN and DM, admitted for chest pain s/p cardiac cath - L Main: Ostial 20%, LAD: Mid 30% stenosis, L Cx: Prior stent patent. OM1 50% RCA: Proximal 80% calcific stensis , EF 60% and plan for Complex RCA [place] [facility] [place] wants to go home today without doing the intervention explained to the patient via quality control microbiology supervisor the procedure,benefit , risks , which include - more damage to the heart, will lead to heart attack and even . Patient understands fully and stated she has been a diabetic for long time and due to her age , she wants to go home and continue medical theraoy and think about again an ddiscuss with her family and if she decide she will contact her PMD ( Dr. Back) D/W Dr. Bustamante, stated to f/u with his office on Friday D/W Dr. Back, can be discharged home today Patient instructed any chest pain call 911 and go the nearest hospital
[2017-04-25] MEDS ORDERED: Pneumococcal 23-Valent Vaccine IM ONE (14:25)
--- NOTE | 2017-04-25 14:25 | CP.PCM.DIS ---
Provider - Provider Date of Admission: 04/21/17 21:15 Attending physician: Holli Back MD Time Spent in preparation of Discharge (in minutes): 30 Hospital Course - Lab Results Lab Results: Most Recent Lab Values WBC 8.6 K/uL (4.8-10.8) 04/22/17 05:35 RBC 4.22 Mil/uL (3.80-5.20) 04/22/17 05:35 Hgb 11.5 g/dL (11.0-16.0) 04/22/17 05:35 Hct 33.8 % (34.0-47.0) L 04/22/17 05:35 MCV 80.1 fL (81.0-99.0) L 04/22/17 05:35 MCH 27.3 pg (27.0-31.0) 04/22/17 05:35 MCHC 34.0 g/dL (33.0-37.0) 04/22/17 05:35 RDW 14.9 % (11.5-14.5) H 04/22/17 05:35 Plt Count 203 K/uL (130-400) 04/22/17 05:35 MPV 9.9 fL (7.2-11.7) 04/22/17 05:35 Neut % (Auto) 64.8 % (50.0-75.0) 04/22/17 05:35 Lymph % (Auto) 24.2 % (20.0-40.0) 04/22/17 05:35 [place] % (Auto) 6.0 % (0.0-10.0) 04/22/17 05:35 Eos % (Auto) 4.3 % (0.0-4.0) H 04/22/17 05:35 Baso % (Auto) 0.7 % (0.0-2.0) 04/22/17 05:35 Neut # 5.6 K/uL (1.8-7.0) 04/22/17 05:35 Lymph # 2.1 K/uL (1.0-4.3) 04/22/17 05:35 [place] # 0.5 K/uL (0.0-0.8) 04/22/17 05:35 Eos # 0.4 K/uL (0.0-0.7) 04/22/17 05:35 Baso # 0.1 K/uL (0.0-0.2) 04/22/17 05:35 PT 11.1 SECONDS (9.7-12.2) 04/21/17 17:41 INR 1.0 04/21/17 17:41 APTT 30 SECONDS (21-34) 04/21/17 17:41 Sodium 136 mmol/L (132-148) 04/24/17 06:49 Potassium 4.1 mmol/L (3.6-5.2) 04/24/17 06:49 Chloride 98 mmol/L (98-107) 04/24/17 06:49 Carbon Dioxide 27 mmol/L (22-30) 04/24/17 06:49 Anion Gap 15 (10-20) 04/24/17 06:49 BUN 18 mg/dL (7-17) H 04/24/17 06:49 Creatinine 0.8 mg/dL (0.7-1.2) 04/24/17 06:49 Est GFR ( Amer) > 60 04/24/17 06:49 Est GFR (Non-Af Amer) > 60 04/24/17 06:49 POC Glucose (mg/dL) 190 mg/dL (65-110) H 04/25/17 11:09 Random Glucose 167 mg/dL (65-105) H 04/24/17 06:49 Calcium 8.4 mg/dl (8.6-10.4) L 04/24/17 06:49 Iron 44 ug/dL (37-170) 04/22/17 05:11 TIBC 308 ug/dL (250-450) 04/22/17 05:11 % Saturation 14 (20-55) L 04/22/17 05:11 Ferritin 78.3 ng/mL 04/22/17 05:11 Total Bilirubin 0.8 mg/dL (0.2-1.3) 04/21/17 17:17 AST 18 U/L (14-36) 04/21/17 17:17 ALT 32 U/L (9-52) 04/21/17 17:17 Alkaline Phosphatase 91 U/L (38-126) 04/21/17 17:17 Total Creatine Kinase 103 U/L (30-135) 04/22/17 09:31 CK-MB (Mass) 1.29 ng/mL (0.0-3.38) 04/22/17 09:31 Troponin I 0.0170 ng/mL (0.00-0.120) 04/22/17 09:31 NT-Pro-B Natriuret Pep 119 pg/mL (0-900) 04/21/17 17:17 Total Protein 7.6 g/dL (6.3-8.3) 04/21/17 17:17 Albumin 4.4 g/dL (3.5-5.0) 04/21/17 17:17 Globulin 3.2 gm/dL (2.2-3.9) 04/21/17 17:17 Albumin/Globulin Ratio 1.4 (1.0-2.1) 04/21/17 17:17 Triglycerides 280 mg/dL (0-149) H 04/22/17 05:11 Cholesterol 135 mg/dL (0-199) 04/22/17 05:11 LDL Cholesterol Direct 62 mg/dL (0-129) 04/22/17 05:11 HDL Cholesterol 39 mg/dL (30-70) 04/22/17 05:11 - Hospital Course Hospital Course: Patient was admited after co chest pain by Dr. Bustamante pt had a cardiac cath that showed 80% stenosis of RCA pt ruled out no chest pain or sob during hosptial stay Patients needs intervention of RCA but she refused to stay in the hospital to wait until transferred to [facility] I discussed situation with DR. Bustamante and he agrees to discharge home on asa and plavix. He will see her next week to schedule procedure. Pt's sugars were elvated so her insulin was adjusted. Discharge Exam - Head Exam Head Exam: NORMAL INSPECTION - Eye Exam Eye Exam: Normal appearance - ENT Exam ENT Exam: Mucous Membranes Dry - Respiratory Exam Respiratory Exam: Clear to PA & Lateral - Cardiovascular Exam Cardiovascular Exam: REGULAR RHYTHM Discharge Plan - Discharge Medications Prescriptions: Rosuvastatin Calcium 10 mg PO HS #30 tablet - Follow Up Plan Instructions: Angina (DC), Angina (GEN), Chest Pain (DC), Chest Pain (GEN) Additional Instructions: Please f/u with Dr. Bustamante office on Friday at 4 pm. please f/u with Dr. Moody office in 3-5 days Please continue medication as per Med. REc IF ANY CHEST PAIN PLEASE CALL 911 AND GO TO NEAREST HOSPITAL Referrals: Kenton Bustamante MD [Staff Provider] - 04/30/17 Holli Back MD [Staff Provider] - 1 Week
--- NOTE | 2017-04-25 19:31 | CARD ---
APPROVED REPORT EKG Measurement Heart [id number] <Conclusion> Normal sinus rhythm Normal ECG
--- NOTE | 2017-04-25 19:37 | CARD ---
APPROVED REPORT EKG Measurement Heart [id number] <Conclusion> Normal sinus rhythm Normal ECG
== END 2017-04-25 15:04 | disposition home or self-care (01) | DRG 287 ==
LOC: C.ER 15:34 → C.9E 19:15 → OBSVTOIN 21:15 → C.5S 04-22 14:13
PROVIDERS: ADMIT Internal Medicine; ATTEND Internal Medicine
PROC: B2151ZZ Fluoroscopy of Left Heart using Low Osmolar Contrast (ICD-10-PCS; 2017-04-23)
PROC: B2111ZZ Fluoroscopy of Multiple Coronary Arteries using Low Osmolar Contrast (ICD-10-PCS; 2017-04-23)
PROC: 4A023N7 Measurement of Cardiac Sampling and Pressure, Left Heart, Percutaneous Approach (ICD-10-PCS; principal; 2017-04-23 08:00)
DX: I25.119 Atherosclerotic heart disease of native coronary artery with unspecified angina pectoris (principal); E11.22 Type 2 diabetes mellitus with diabetic chronic kidney disease; E11.65 Type 2 diabetes mellitus with hyperglycemia; K76.0 Fatty (change of) liver, not elsewhere classified; E78.00 Pure hypercholesterolemia, unspecified; F41.9 Anxiety disorder, unspecified; I12.9 Hypertensive chronic kidney disease with stage 1 through stage 4 chronic kidney disease, or unspecified chronic kidney disease; I25.2 Old myocardial infarction; M15.9 Polyosteoarthritis, unspecified; L20.9 Atopic dermatitis, unspecified; K29.00 Acute gastritis without bleeding; M81.0 Age-related osteoporosis without current pathological fracture; N18.9 Chronic kidney disease, unspecified; Z79.4 Long term (current) use of insulin; Z79.51 Long term (current) use of inhaled steroids; Z79.899 Other long term (current) drug therapy; Z90.710 Acquired absence of both cervix and uterus

== ENCOUNTER 2017-07-31 08:25 | Day surgery (SDC) | payer MEDICARE ==
[2017-07-24 08:10] VITALS: BMI 26.6
[~2017-07-31 08:25] MED LIST: Lactated Ringer's 500 ML IV ONE; Phenylephrine 2.5% Opht Soln OS SCH; Tropicamide 1% Opht SOLUTION OS SCH
[2017-07-31] MEDS ORDERED: Lactated Ringer's 500 ML IV ONE (09:12)
[2017-07-31] MEDS: Carbachol 0.01% IO ONE ×2 (09:46→11:04)
[2017-07-31] MEDS: Chondroitin/Hyaluronate Opth Syringe KIT (0.55 ml-0.5 ml) IO ONE ×2 (09:47→11:04)
[2017-07-31] MEDS: Povidone Iodine Ophthalmic 5% Soln ONE ×2 (09:47→10:56)
[2017-07-31] MEDS: Lidocaine 2% Inj (20ml) ONE ×2 (09:47→10:55)
[2017-07-31] MEDS: Hyaluronidase Human, Recombi 150 U/ML VIAL ONE ×2 (09:47→10:55)
[2017-07-31] MEDS: Tetracaine 0.5% Ophth (OR ONLY) ONE ×2 (09:48→10:56)
[2017-07-31] MEDS: Tobramycin/Dexamethasone OPHT OINT ONE ×2 (09:48→11:05)
[2017-07-31 09:53] VITALS: RESP 18
[2017-07-31] MEDS ORDERED: Propofol 10 mg/ml Inj (20 ML) ONE (10:54)
[2017-07-31 11:37] VITALS: TEMP 97; O2SAT 100
[2017-07-31 12:00] VITALS: BP 120/70; PULSE 64
--- NOTE | 2017-07-31 22:15 | OP ---
PROCEDURE DATE: 07/31/2017 PREOPERATIVE DIAGNOSIS: Hypermature cataract, left eye. POSTOPERATIVE DIAGNOSIS: Hypermature cataract, left eye. OPERATIVE PROCEDURE: Complex cataract surgery due to hypermaturity, left eye, using VisionBlue. ATTENDING: Dr. Luca Tejada. ANESTHESIA: Retrobulbar block. COMPLICATIONS: None. ESTIMATED BLOOD LOSS: Zero. DESCRIPTION OF PROCEDURE: The patient was brought to the operating room and properly identified. Anesthesia staff administered intravenous sedation and retrobulbar block was given to the surgical eye. The patient was then prepped and draped in the usual sterile fashion. Attention was turned to the surgical eye. A lid speculum was placed into interpalpebral fissure. Sitting temporally, two paracentesis incisions were made. The anterior chamber was filled with viscoelastic and a triplanar clear corneal incision was made. Using a cystitome, anterior capsular leaflet was created. Utrata forceps were used to create a continuous curvilinear capsulorrhexis. Balanced salt solution on a cannula was used to hydrodissect and hydrodelineate the lens. The lens was then phacoemulsified with no complications. Automated irrigation and aspiration was used to remove the cortex. Viscoelastic was used to deepen the anterior chamber. The lens was placed in the capsular bag. Automated irrigation and aspiration was used to remove the viscoelastic. The anterior chamber was filled with Miochol. The wounds were hydrated with balanced salt solution. There was noted to be no leak at the end of the case and the lens was well positioned. The lid speculum was removed. The eye was given antibiotics and steroids and covered with a patch and shield. The patient was returned to the recovery room in stable condition. ADDENDUM Due to complexity of the cataract, VisionBlue was used to highlight the anterior capsule to create capsulorrhexis. Luca Tejada MD
== END 2017-07-31 12:02 | disposition home or self-care (01) ==
LOC: C.SDS 08:25
PROVIDERS: ATTEND Ophthalmology
DX: H25.22 Age-related cataract, morgagnian type, left eye (principal); Z79.899 Other long term (current) drug therapy; Z79.02 Long term (current) use of antithrombotics/antiplatelets; Z79.82 Long term (current) use of aspirin; I25.10 Atherosclerotic heart disease of native coronary artery without angina pectoris; E11.9 Type 2 diabetes mellitus without complications; E78.5 Hyperlipidemia, unspecified; I10 Essential (primary) hypertension; I25.2 Old myocardial infarction; Z79.4 Long term (current) use of insulin
CPT/HCPCS: 66982; 82948; J2704; J3470; J7120; V2632

== ENCOUNTER 2017-10-16 05:53 | Day surgery (SDC) | payer MEDICARE ==
[2017-10-02 08:33] VITALS: BMI 25.7
[2017-10-16] MEDS ORDERED: Tropicamide 1% Opht SOLUTION OD SCH (06:00)
[2017-10-16] MEDS ORDERED: Phenylephrine 2.5% Opht Soln OD SCH (06:00)
[2017-10-16] MEDS ORDERED: Lactated Ringer's 500 ML IV ONE ×2 (06:00→06:39)
[2017-10-16] MEDS ORDERED: Povidone Iodine Ophthalmic 5% Soln ONE (07:21)
[2017-10-16] MEDS ORDERED: Hyaluronidase Human, Recombi 150 U/ML VIAL ONE (07:23)
[2017-10-16] MEDS: Carbachol 0.01% IO ONE ×2 (07:56→08:05)
[2017-10-16] MEDS ORDERED: Midazolam 2 MG/2 ML VIAL ONE (07:57)
[2017-10-16] MEDS: Tobramycin/Dexamethasone OPHT OINT ONE ×2 (07:57→08:40)
[2017-10-16] MEDS: Chondroitin/Hyaluronate Opth Syringe KIT (0.55 ml-0.5 ml) IO ONE ×2 (07:57→08:06)
[2017-10-16] MEDS: Lidocaine 2% MPF (5 ml) Inj ONE ×2 (07:58→08:00)
[2017-10-16] MEDS ORDERED: Hyaluronate Sodium 10 mg/ml Ophth Syringe ONE (08:34)
[2017-10-16 09:44] VITALS: RESP 18; O2SAT 97
[2017-10-16 12:33] VITALS: BP 118/71; PULSE 71; TEMP 97.7
--- NOTE | 2017-10-17 06:26 | OP ---
PROCEDURE DATE: 10/16/2017 PREOPERATIVE DIAGNOSIS: Hypermature cataract, right eye. POSTOPERATIVE DIAGNOSIS: Hypermature cataract, right eye. OPERATIVE PROCEDURE: Cataract extraction with no lens implant for complex cataract. ATTENDING: Luca Tejada MD. ANESTHESIA: Retrobulbar block. DESCRIPTION OF PROCEDURE: The patient was brought to the operating room and properly identified. Anesthesia gave IV sedation. Retrobulbar block was given to the right eye. The patient was then prepped and draped in the usual sterile fashion. Sitting temporally, two paracentesis incisions were made. Shugarcaine was injected to the anterior chamber to dilate the pupil followed by VisionBlue to highlight the anterior capsule. Viscoelastic was then put in the eye to deepen the anterior chamber, and then a clear corneal incision was then made. A cystitome was used to create a continuous curvilinear capsulorrhexis. BSS was used to hydrodissect and hydrodelineate the lens. Once phacoemulsification was started, the lens . At this point, there was noted to be significant amount of loss and instability superiorly as much of the lens that was removed. Portion of the lens remained due to instability. Decision was made to not put an eye roll in the eye. Remaining viscoelastic was removed with automated I and A. The wound was sutured using a single nylon suture and buried. The eye was given at the end of the case. Anterior chamber was deepened with BS solution. All wounds were intact. There was no vitreous or anything to any wound. The eye was covered by a soft patch and shield. The patient was returned to the recovery room in stable condition. Luca Tejada MD
== END 2017-10-16 11:12 | disposition home or self-care (01) ==
LOC: C.SDS 05:53
PROVIDERS: ATTEND Ophthalmology
DX: H25.21 Age-related cataract, morgagnian type, right eye (principal); I10 Essential (primary) hypertension; E11.9 Type 2 diabetes mellitus without complications
CPT/HCPCS: 66850; 82948; J2250; J3010; J3470; J7120

== ENCOUNTER 2017-12-01 14:20 | Emergency (ER) | payer MEDICARE, OTHER ==
[2017-12-01 14:20] VITALS: BMI 25.7
[2017-12-01 15:08] VITALS: BP 144/70; PULSE 75; RESP 18; TEMP 97.6; O2SAT 98
== END 2017-12-01 15:08 | disposition left against medical advice (07) ==
LOC: C.ER 14:20
DX: Z02.89 Encounter for other administrative examinations (principal); K59.00 Constipation, unspecified

== ENCOUNTER 2018-01-20 09:31 | Observation (INO) | payer MEDICARE, OTHER ==
[2018-01-20 09:32] VITALS: BMI 25.7
[2018-01-20 10:13] LABS: BASO # 0.1 K/uL (0.0-0.2); BASO % 0.9 % (0.0-2.0); EOS # 0.2 K/uL (0.0-0.7); EOS % 2.8 % (0.0-4.0); HEMOGLOBIN 12.4 g/dL (11.0-16.0); LYMPH # 2.1 K/uL (1.0-4.3); LYMPH % 26.3 % (20.0-40.0); MEAN CELL VOLUME 77.7 fL (81.0-99.0); MEAN CORPUSCULAR HEMOGLOBIN 26.2 pg (27.0-31.0); MEAN CORPUSCULAR HGB CONC 33.7 g/dL (33.0-37.0); MONO # 0.5 K/uL (0.0-0.8); MONO % 6.2 % (0.0-10.0); NEUT # 5.2 K/uL (1.8-7.0); NEUT % 63.8 % (50.0-75.0); RBC 4.73 Mil/uL (3.80-5.20); WHITE BLOOD COUNT 8.1 K/uL (4.8-10.8)
[2018-01-20 10:20] LABS: INR 0.9; PROTHROMBIN TIME 10.1 SECONDS (9.7-12.2)
[2018-01-20 10:24] LABS: ALB/GLOB RATIO 1.3 (1.0-2.1); ALBUMIN 4.2 g/dL (3.5-5.0); ALT/SGPT 21 U/L (9-52); AST/SGOT 17 U/L (14-36); BLOOD UREA NITROGEN 18 mg/dL (7-17); CALCIUM 10.1 mg/dl (8.6-10.4); GFR NON-AFRICAN AMERICAN 54
--- NOTE | 2018-01-20 10:31 | C.PDOC ---
History Of Present Illness 72 year old female presents to the emergency department to the emergency department with complaints of chest pain described as a pressure since 3AM today. She reports that the pain radiates to her left arm and back. Time Seen by Provider: 01/20/18 09:44 Chief Complaint (Nursing): Chest Pain History Per: Patient History/Exam Limitations: no limitations Onset/Duration Of Symptoms: Hrs Current Symptoms Are (Timing): Still Present Quality: Pressure, "Pain" Past Medical History Reviewed: Historical Data, Nursing Documentation, Vital Signs Vital Signs: Last Vital Signs Temp 97.6 F 01/20/18 09:44 Pulse 75 01/20/18 10:52 Resp 20 01/20/18 10:52 BP 145/67 01/20/18 10:52 Pulse Ox 99 01/20/18 11:46 - Medical History PMH: Diabetes, HTN, Hypercholesterolemia, Osteoporosis Denies: Chronic Kidney Disease Surgical History: No Surg Hx - [facility] Procedures CORONAR ARTERIOGR-2 CATH (03/26/14) FLUOROSCOPY OF LEFT HEART USING LOW OSMOLAR CONTRAST (04/21/17) FLUOROSCOPY OF MULT COR ART USING L OSM CONTRAST (04/21/17) INSERTION OF TWO VASCULAR STENTS (03/26/14) INSRT OF DRUG-ELUTING CORON ARTERY STENTS(S) (03/26/14) LEFT HEART CARDIAC CATH (03/26/14) LT HEART ANGIOCARDIOGRAM (03/26/14) MEASURE OF CARDIAC SAMPL & PRESSURE, L HEART, PERC APPROACH (04/21/17) PERCUTANEOUS TRANSLUMINAL CORONARY ANGIOPLASTY [PTCA] (03/26/14) PROCEDURE ON SINGLE VESSEL (03/26/14) PROCTOTOMY (11/13/13) Family History: States: No Known Family Hx - Social History Hx Tobacco Use: No Hx Alcohol Use: No Hx Substance Use: No - Immunization History Hx Tetanus Toxoid Vaccination: No Hx Influenza Vaccination: Yes Hx Pneumococcal Vaccination: Yes Review Of Systems Except As Marked, All Systems Reviewed And Found Negative. Cardiovascular: Positive for: Chest Pain Physical Exam - Physical Exam Appears: Non-toxic, In Acute Distress Skin: Warm, Dry Head: Atraumatic, Normacephalic Eye(s): bilateral: Normal Inspection Neck: Normal, Supple Chest: Symmetrical Cardiovascular: Rhythm Regular, No Murmur Respiratory: Normal Breath Sounds, No Rales, No Rhonchi, No Wheezing Gastrointestinal/Abdominal: Soft Extremity: Normal ROM, No Tenderness, No Pedal Edema Pulses: Left Dorsalis Pedis: Normal, Right Dorsalis Pedis: Normal Neurological/Psych: Oriented x3, Normal Speech, Normal Cognition ED Course And Treatment - Laboratory Results Result Diagrams: 01/20/18 10:08 01/20/18 10:08 ECG Rhythm: Sinus Rhythm ECG Interpretation: Abnormal Interpretation Of ECG: Normal sinus rhythm at 86bpm, normal intervals, normal axis, T-wave inversion in V2, Q-Wave in V3. O2 Sat by Pulse Oximetry: 99 (RA) Pulse Ox Interpretation: Normal Medical Decision Making Medical Decision Making: Assessment: Chest pain Plan: EKG BNP CMP Troponin I CBC PTT Prothrombin Time CXR One View Ecotrin 81mg PO Disposition Discussed With : Kenton Bustamante Doctor Will See Patient In The: Hospital Counseled Patient/Family Regarding: Studies Performed, Diagnosis - Disposition Disposition: HOSPITALIZED Disposition Time: 11:46 Condition: FAIR - Clinical Impression Clinical Impression: Chest pain - Scribe Statement The provider has reviewed the documentation as recorded by the Scribe (Kirill Bourne) Provider Attestation: All medical record entries made by the Scribe were at my direction and personally dictated by me. I have reviewed the chart and agree that the record accurately reflects my personal performance of the history, physical exam, medical decision making, and the department course for this patient. I have also personally directed, reviewed, and agree with the discharge instructions and disposition.
[2018-01-20 10:48] LABS: B-TYPE NATRIURETIC PEPTIDE 96.6 pg/mL (0-900)
[2018-01-20 10:53] VITALS: RESP 20
--- NOTE | 2018-01-20 11:26 | RAD ---
Date of service: 01/20/2018 PROCEDURE: CHEST RADIOGRAPH, 1 VIEW HISTORY: chest pain COMPARISON: 04/21/2017 FINDINGS: LUNGS: Clear. PLEURA: No pneumothorax or pleural fluid seen. CARDIOVASCULAR: Normal. OSSEOUS STRUCTURES: Thoracic spondylosis VISUALIZED UPPER ABDOMEN: Normal. OTHER FINDINGS: None. IMPRESSION: No active disease.
[2018-01-20] MEDS ORDERED: Glucagon Recombinant 1 mg Inj IM PRN (13:15)
[2018-01-20] MEDS ORDERED: Dextrose 50% SYRINGE Inj (50 ml) IVP PRN (13:15)
--- NOTE | 2018-01-20 15:39 | CP.PCM.HP ---
<Holli Back - Last Filed: 01/20/18 16:38> Meds Allergies/Adverse Reactions: Allergies Allergy/AdvReac Type Severity Reaction Status Date / Time No Known Allergies Allergy Verified 01/20/18 09:41 Results - Vital Signs Recent Vital Signs: Last Vital Signs Temp 97.9 F 01/20/18 12:55 Pulse 77 01/20/18 13:00 Resp 20 01/20/18 12:55 BP 164/74 H 01/20/18 12:55 Pulse Ox 95 01/20/18 12:55 - Labs Result Diagrams: 01/20/18 10:08 01/20/18 10:08 Labs: Laboratory Results - last 24 hr 01/20/18 01/20/18 01/20/18 10:08 10:08 10:08 WBC 8.1 RBC 4.73 Hgb 12.4 Hct 36.7 MCV 77.7 L MCH 26.2 L MCHC 33.7 RDW 16.0 H Plt Count 226 MPV 9.0 Neut % (Auto) 63.8 Lymph % (Auto) 26.3 Dubois % (Auto) 6.2 Eos % (Auto) 2.8 Baso % (Auto) 0.9 Neut # (Auto) 5.2 Lymph # (Auto) 2.1 Dubois # (Auto) 0.5 Eos # (Auto) 0.2 Baso # (Auto) 0.1 PT 10.1 INR 0.9 APTT 37 H Sodium 136 Potassium 4.5 Chloride 98 Carbon Dioxide 25 Anion Gap 18 BUN 18 H Creatinine 1.0 Est GFR ( Amer) > 60 Est GFR (Non-Af Amer) 54 Random Glucose 340 H Calcium 10.1 Total Bilirubin 0.6 AST 17 ALT 21 Alkaline Phosphatase 117 Troponin I 0.0220 NT-Pro-B Natriuret Pep 96.6 Total Protein 7.3 Albumin 4.2 Globulin 3.1 Albumin/Globulin Ratio 1.3 <Rigo Mack - Last Filed: 01/20/18 17:20> History of Present Illness - History of Present Illness History of Present Illness: CC: Chest pain HPI: Patient is a 72 year old female with past medical history of HTN, DM, Hypercholesterolemia, CAD, s/p OK/PCI 4-5 years ago and Osteoporosis who presents to the ED with complaint of chest pain that woke her up at 3AM. Patient describes her chest pain as a 5/10 constant sharp achy pain that radiates to her left arm, shoulder and upper back. Patient denies any symptoms of fever, chills, nausea, vomiting, diaphoresis, palpitations and SOB but does admit. In addition, patient recently had right eye cataract surgery and currently with right eye swelling; currently on medications prescribed by Ophthalmology. PMD: Dr. Back PMHx: HTN, DM, Hypercholesterolemia, CAD, s/p OK/PCI 4-5 years ago and Osteoporosis PSHx: Cardiac catherization with intervention X3 FHx: Mother: DM - Family history of colon cancer and HTN Medications: Allergies: Denies Social Hx; lives with sister. Denies hx of tobacco, alcohol and illicit drug use. Present on Admission - Present on Admission Any Indicators Present on Admission: No Review of Systems - Constitutional Constitutional: absent: Chills, Fatigue, Fever, Headache - EENT Eyes: absent: Blurred Vision, Change in Vision Ears: Dizziness - Cardiovascular Cardiovascular: Chest Pain, Chest Pain at Rest, Radiating Pain. absent: Diaphoresis, Dyspnea, Lightheadedness, Palpitations, Pedal Edema, Rapid Heart Rate - Respiratory Respiratory: absent: Cough, Dyspnea, Wheezing - Gastrointestinal Gastrointestinal: absent: Abdominal Pain, Nausea, Vomiting - Neurological Neurological: Dizziness. absent: Numbness, Headaches, Tingling, Weakness - Endocrine Endocrine: absent: Excessive Sweating Past Patient History - Past Medical History & Family History Past Medical History?: Yes - Past Social History Smoking Status: Never Smoked - CARDIAC Hx Hypercholesterolemia: Yes Hx Hypertension: Yes - PULMONARY Hx Respiratory Disorders: No - NEUROLOGICAL Hx Neurological Disorder: No - HEENT Hx HEENT Problems: Yes - RENAL Hx Chronic Kidney Disease: No - ENDOCRINE/METABOLIC Hx Endocrine Disorders: Yes Hx Diabetes Mellitus Type 2: Yes - HEMATOLOGICAL/ONCOLOGICAL Hx Blood Disorders: No - INTEGUMENTARY Hx Dermatological Problems: No - MUSCULOSKELETAL/RHEUMATOLOGICAL Hx Osteoporosis: Yes - GASTROINTESTINAL Hx Gastrointestinal Disorders: No - GENITOURINARY/GYNECOLOGICAL Hx Genitourinary Disorders: No - PSYCHIATRIC Hx Substance Use: No - SURGICAL HISTORY Hx Surgeries: Yes Hx Cataract Extraction: Yes (Rt. eye) - ANESTHESIA Hx Anesthesia: Yes Hx Anesthesia Reactions: No Hx Malignant Hyperthermia: No Physical Exam - Constitutional Additional comments: Mild discomfort - Head Exam Head Exam: ATRAUMATIC, NORMAL INSPECTION - Eye Exam Eye Exam: EOMI (Right eye swelling, recent cataract surgery ) - ENT Exam ENT Exam: Mucous Membranes Moist - Respiratory Exam Respiratory Exam: Clear to Auscultation Bilateral, NORMAL BREATHING PATTERN. absent: Accessory Muscle Use, Chest Wall Tenderness, Decreased Breath Sounds, Prolonged Expiratory Phase, Rhonchi, Wheezes - Cardiovascular Exam Cardiovascular Exam: REGULAR RHYTHM, +S1, +S2. absent: Tachycardia, Diastolic murmur, Irregular Rhythm, JVD, Systolic Murmur Additional comments: Reproducible chest pain - GI/Abdominal Exam GI & Abdominal Exam: Normal Bowel Sounds, Soft. absent: Distended, Firm, Guarding, Tenderness - Extremities Exam Extremities exam: Positive for: normal inspection. Negative for: calf tenderness, pedal edema Results - Vital Signs Recent Vital Signs: Last Vital Signs Temp 97.9 F 01/20/18 12:55 Pulse 77 01/20/18 13:00 Resp 20 01/20/18 12:55 BP 164/74 H 01/20/18 12:55 Pulse Ox 95 01/20/18 12:55 - Labs Result Diagrams: 01/20/18 10:08 01/20/18 10:08 Labs: Laboratory Results - last 24 hr 01/20/18 01/20/18 01/20/18 10:08 10:08 10:08 WBC 8.1 RBC 4.73 Hgb 12.4 Hct 36.7 MCV 77.7 L MCH 26.2 L MCHC 33.7 RDW 16.0 H Plt Count 226 MPV 9.0 Neut % (Auto) 63.8 Lymph % (Auto) 26.3 Dubois % (Auto) 6.2 Eos % (Auto) 2.8 Baso % (Auto) 0.9 Neut # (Auto) 5.2 Lymph # (Auto) 2.1 Dubois # (Auto) 0.5 Eos # (Auto) 0.2 Baso # (Auto) 0.1 PT 10.1 INR 0.9 APTT 37 H Sodium 136 Potassium 4.5 Chloride 98 Carbon Dioxide 25 Anion Gap 18 BUN 18 H Creatinine 1.0 Est GFR ( Amer) > 60 Est GFR (Non-Af Amer) 54 Random Glucose 340 H Calcium 10.1 Total Bilirubin 0.6 AST 17 ALT 21 Alkaline Phosphatase 117 Troponin I 0.0220 NT-Pro-B Natriuret Pep 96.6 Total Protein 7.3 Albumin 4.2 Globulin 3.1 Albumin/Globulin Ratio 1.3 Assessment & Plan (1) Chest pain Assessment and Plan: R/o ACS On admission: - Troponin negative X1, F/u Troponin X2 and respective EKG changes - No EKG changes from previous EKGs - HgbA1C (10/02/17): 10.1; F/U HgbA1C - Lipid panel: TGL:178, Chol: 135, LDL: 53 and HDL: 44, F/u repeat lipid panel - F/u TSH and Free T4 Echocardiogram (04/22/17): Left ventricle systolic function is normal, EF (50-55 %) and diastolic dysfunction. Please refer to the EMR for complete impression Cardiac catherization (05/11/17): Normal LV systolic function, prior LAD stent, RCA ostial to proximal 95% to 99% stenosis. Aortic root angiogram reaveled. No aortic dissection or aortic aneursym Plans for stress test. Status: Acute (2) History of coronary artery disease Assessment and Plan: Echocardiogram (04/22/17): Left ventricle systolic function is normal, EF (50-55 %) and diastolic dysfunction. Please refer to the EMR for complete impression Cardiac catherization (05/11/17): Normal LV systolic function, prior LAD stent, RCA ostial to proximal 95% to 99% stenosis. Aortic root angiogram reaveled. No aortic dissection or aortic aneursym Medications: ASA 81mg PO daily Plavix 75mg PO daily Crestor 10mg PO HS Lopressor 25mg PO BID Status: Acute (3) Hypertension Assessment and Plan: Norvasc 5mg PO daily Cozaar 25mg PO daily Lopressor 25mg PO BID Status: Acute (4) Diabetes Assessment and Plan: HgbA1C (10/02/17): 10.1; F/U HgbA1C Accuchecks Novolin R medium dose protocol Novolog 10 untis SC TID Levemir 30 units SC BID Metformin 1,000mg PO BID Januvia 50mg PO BID Hypoglycemia protocol Status: Acute (5) Eye swelling, right Assessment and Plan: Recent right eye cataract surgery Prednisone 20mg PO daily Cyclogy 1% opth OD TID Polytrim OD BID Status: Acute (6) Prophylactic measure Assessment and Plan: GI: Pepcid 20mg PO BID DVT: Heparin 5,000 units sc Q8H Status: Acute <Kenton Bustamante - Last Filed: 01/20/18 21:32> Results - Vital Signs Recent Vital Signs: Last Vital Signs Temp 98.1 F 01/20/18 15:30 Pulse 80 01/20/18 18:00 Resp 20 01/20/18 15:30 BP 127/76 01/20/18 18:30 Pulse Ox 97 01/20/18 15:30 - Labs Result Diagrams: 01/20/18 10:08 01/20/18 10:08 Labs: Laboratory Results - last 24 hr 01/20/18 01/20/18 01/20/18 10:08 10:08 10:08 WBC 8.1 RBC 4.73 Hgb 12.4 Hct 36.7 MCV 77.7 L MCH 26.2 L MCHC 33.7 RDW 16.0 H Plt Count 226 MPV 9.0 Neut % (Auto) 63.8 Lymph % (Auto) 26.3 Dubois % (Auto) 6.2 Eos % (Auto) 2.8 Baso % (Auto) 0.9 Neut # (Auto) 5.2 Lymph # (Auto) 2.1 Dubois # (Auto) 0.5 Eos # (Auto) 0.2 Baso # (Auto) 0.1 PT 10.1 INR 0.9 APTT 37 H Sodium 136 Potassium 4.5 Chloride 98 Carbon Dioxide 25 Anion Gap 18 BUN 18 H Creatinine 1.0 Est GFR ( Amer) > 60 Est GFR (Non-Af Amer) 54 POC Glucose (mg/dL) Random Glucose 340 H Calcium 10.1 Total Bilirubin 0.6 AST 17 ALT 21 Alkaline Phosphatase 117 Total Creatine Kinase CK-MB (Mass) Troponin I 0.0220 NT-Pro-B Natriuret Pep 96.6 Total Protein 7.3 Albumin 4.2 Globulin 3.1 Albumin/Globulin Ratio 1.3 01/20/18 01/20/18 17:11 17:20 WBC RBC Hgb Hct MCV MCH MCHC RDW Plt Count MPV Neut % (Auto) Lymph % (Auto) Dubois % (Auto) Eos % (Auto) Baso % (Auto) Neut # (Auto) Lymph # (Auto) Dubois # (Auto) Eos # (Auto) Baso # (Auto) PT INR APTT Sodium Potassium Chloride Carbon Dioxide Anion Gap BUN Creatinine Est GFR ( Amer) Est GFR (Non-Af Amer) POC Glucose (mg/dL) 302 H Random Glucose Calcium Total Bilirubin AST ALT Alkaline Phosphatase Total Creatine Kinase 40 CK-MB (Mass) 0.55 Troponin I 0.0130 NT-Pro-B Natriuret Pep Total Protein Albumin Globulin Albumin/Globulin Ratio Assessment & Plan - Assessment and Plan (Free Text) Assessment: Patient seen and evaluated personally by me Plan of care d/w the medical insurance verifier and as documented
--- NOTE | 2018-01-20 16:59 | CP.PCM.CON ---
History of Present Illness - History of Present Illness History of Present Illness: Pt is a 72 year old female with poorly controlled. PT recently had right eye surgery and has had swelling, pain and redness in the affected eye. yesterday her eye doctor started her on eye drops (abx) and prednisone due to eye swelling. Pt was started on aditional novolg 8 units tid and her usual dose of levemir 30 bid in anticipation of steroids. Pt came to the ER today co chest pain. PHMx: Wedge compression fraction polyosteoarthritis Atopic dermatitis Hypertension Asthma Vit D deff Gastritis Anxiety Diabetes Hypercholesterolemia fatty liver Protenuria CKD Heart disease CAD Social Hx: (-) Smoke (-) ETOH (-) Drugs Allergies: Tramadol Family Hx: Unknown Past Patient History - Past Medical History & Family History Past Medical History?: Yes - Past Social History Smoking Status: Never Smoked - CARDIAC Hx Hypercholesterolemia: Yes Hx Hypertension: Yes - PULMONARY Hx Respiratory Disorders: No - NEUROLOGICAL Hx Neurological Disorder: No - HEENT Hx HEENT Problems: Yes - RENAL Hx Chronic Kidney Disease: No - ENDOCRINE/METABOLIC Hx Endocrine Disorders: Yes Hx Diabetes Mellitus Type 2: Yes - HEMATOLOGICAL/ONCOLOGICAL Hx Blood Disorders: No - INTEGUMENTARY Hx Dermatological Problems: No - MUSCULOSKELETAL/RHEUMATOLOGICAL Hx Osteoporosis: Yes - GASTROINTESTINAL Hx Gastrointestinal Disorders: No - GENITOURINARY/GYNECOLOGICAL Hx Genitourinary Disorders: No - PSYCHIATRIC Hx Substance Use: No - SURGICAL HISTORY Hx Surgeries: Yes Hx Cataract Extraction: Yes (Rt. eye) - ANESTHESIA Hx Anesthesia: Yes Hx Anesthesia Reactions: No Hx Malignant Hyperthermia: No Meds Allergies/Adverse Reactions: Allergies Allergy/AdvReac Type Severity Reaction Status Date / Time No Known Allergies Allergy Verified 01/20/18 09:41 - Medications Medications: Current Medications Dextrose (Dextrose 50% Inj) 0 ml IVP .STAT PRN; Protocol PRN Reason: Hypoglycemia Protocol Dextrose (Glutose 15) 0 gm PO .ONCE PRN; Protocol PRN Reason: Hypoglycemia Protocol Glucagon (Glucagen Diagnostic Kit) 0 mg IM .STAT PRN; Protocol PRN Reason: Hypoglycemia Protocol Dextrose (Dextrose 5% In Water 1000 Ml) 1,000 mls @ 0 mls/hr IV .Q0M PRN; Protocol; Per Protocol PRN Reason: Hypoglycemia Protocol Insulin Human Regular (Novolin R) 0 unit SC ACHS NATALIE PRN Reason: Protocol Results - Vital Signs Recent Vital Signs: Last Vital Signs Temp 98.1 F 01/20/18 15:30 Pulse 78 01/20/18 15:30 Resp 20 01/20/18 15:30 BP 132/71 01/20/18 15:30 Pulse Ox 97 01/20/18 15:30 - Labs Result Diagrams: 01/20/18 10:08 01/20/18 10:08 Labs: Laboratory Results - last 24 hr 01/20/18 01/20/18 01/20/18 10:08 10:08 10:08 WBC 8.1 RBC 4.73 Hgb 12.4 Hct 36.7 MCV 77.7 L MCH 26.2 L MCHC 33.7 RDW 16.0 H Plt Count 226 MPV 9.0 Neut % (Auto) 63.8 Lymph % (Auto) 26.3 Coffee % (Auto) 6.2 Eos % (Auto) 2.8 Baso % (Auto) 0.9 Neut # (Auto) 5.2 Lymph # (Auto) 2.1 Coffee # (Auto) 0.5 Eos # (Auto) 0.2 Baso # (Auto) 0.1 PT 10.1 INR 0.9 APTT 37 H Sodium 136 Potassium 4.5 Chloride 98 Carbon Dioxide 25 Anion Gap 18 BUN 18 H Creatinine 1.0 Est GFR ( Amer) > 60 Est GFR (Non-Af Amer) 54 Random Glucose 340 H Calcium 10.1 Total Bilirubin 0.6 AST 17 ALT 21 Alkaline Phosphatase 117 Troponin I 0.0220 NT-Pro-B Natriuret Pep 96.6 Total Protein 7.3 Albumin 4.2 Globulin 3.1 Albumin/Globulin Ratio 1.3
[2018-01-20] MEDS: (Novolin R) Insulin Human Regular 100 units/ml vial SC SCH ×2 (17:17→21:41)
[2018-01-20] MEDS ORDERED: (Novolog) Insulin Aspart, Recombinant 100 u/ml 10 ml vial SC SCH (18:00)
[2018-01-20 18:04] LABS: CK-MB 0.55 ng/mL (0.0-3.38); TROPONIN I 0.013 ng/mL (0.00-0.120)
[2018-01-20] MEDS: Polymyxin/Trimethoprim Ophth Soln OD SCH (18:29)
[2018-01-20] MEDS: Cyclopentolate 1% Opth (2 ml) OD SCH (18:30)
[2018-01-20] MEDS: Insulin Detemir 100 units/ml Vial (Levemir) SC SCH (19:28)
[2018-01-20 22:30] LABS: CK-MB 0.52 ng/mL (0.0-3.38); TROPONIN I 0.018 ng/mL (0.00-0.120)
[2018-01-21] MEDS: (Novolin R) Insulin Human Regular 100 units/ml vial SC SCH ×4 (07:56→21:38)
[2018-01-21 08:19] LABS: BASO # 0.1 K/uL (0.0-0.2); BASO % 0.5 % (0.0-2.0); EOS # 0.3 K/uL (0.0-0.7); HEMOGLOBIN 12.2 g/dL (11.0-16.0); LYMPH # 2.5 K/uL (1.0-4.3); LYMPH % 24.7 % (20.0-40.0); MEAN CELL VOLUME 77.6 fL (81.0-99.0); MEAN CORPUSCULAR HEMOGLOBIN 26.1 pg (27.0-31.0); MEAN CORPUSCULAR HGB CONC 33.7 g/dL (33.0-37.0); MEAN PLATELET VOLUME 9.5 fL (7.2-11.7); MONO # 0.6 K/uL (0.0-0.8); NEUT # 6.6 K/uL (1.8-7.0); NEUT % 65.8 % (50.0-75.0); RBC 4.69 Mil/uL (3.80-5.20); RED CELL DISTRIBUTION WIDTH 16.4 % (11.5-14.5)
[2018-01-21 08:37] LABS: ALB/GLOB RATIO 1.3 (1.0-2.1); ALBUMIN 4.1 g/dL (3.5-5.0); ALT/SGPT 18 U/L (9-52); AST/SGOT 20 U/L (14-36); BLOOD UREA NITROGEN 20 mg/dL (7-17); CALCIUM 10.2 mg/dl (8.6-10.4); GFR NON-AFRICAN AMERICAN 54; HDL CHOLESTEROL 35 mg/dL (30-70)
[2018-01-21 08:47] LABS: LDL CHOLESTEROL 56 mg/dL (0-129)
[2018-01-21] MEDS: Cyclopentolate 1% Opth (2 ml) OD SCH ×3 (09:40→18:10)
[2018-01-21] MEDS: Polymyxin/Trimethoprim Ophth Soln OD SCH ×2 (09:42→18:11)
--- NOTE | 2018-01-21 09:44 | CP.PCM.PN ---
Subjective - Date & Time of Evaluation Date of Evaluation: 01/21/18 Time of Evaluation: 09:44 - Subjective Subjective: Pt feels better no chest pain or sob pt states she was given morphine for headache grandson and resident at bed side Objective - Vital Signs/Intake and Output Vital Signs (last 24 hours): Temp Pulse Resp BP Pulse Ox 98.1 F 64 20 117/75 97 01/21/18 08:00 01/21/18 08:00 01/21/18 08:00 01/21/18 09:39 01/21/18 08:00 - Medications Medications: Current Medications Amlodipine Besylate (Norvasc) 5 mg PO DAILY [facility] Last Admin: 01/21/18 09:39 Dose: 5 mg Aspirin (Ecotrin) 81 mg PO DAILY [facility] Last Admin: 01/21/18 09:39 Dose: 81 mg Clopidogrel Bisulfate (Plavix) 75 mg PO DAILY [facility] Last Admin: 01/21/18 09:39 Dose: 75 mg Cyclopentolate HCl (Cyclogyl 1% Opht) 0 drop OD TID [facility] Last Admin: 01/21/18 09:40 Dose: 1 drop Dextrose (Dextrose 50% Inj) 0 ml IVP .STAT PRN; Protocol PRN Reason: Hypoglycemia Protocol Dextrose (Glutose 15) 0 gm PO .ONCE PRN; Protocol PRN Reason: Hypoglycemia Protocol Famotidine (Pepcid) 20 mg PO BID [facility] Last Admin: 01/21/18 09:39 Dose: 20 mg Glucagon (Glucagen Diagnostic Kit) 0 mg IM .STAT PRN; Protocol PRN Reason: Hypoglycemia Protocol Heparin Sodium (Porcine) (Heparin) 5,000 units SC Q8 [facility] Last Admin: 01/21/18 06:02 Dose: 5,000 units Dextrose (Dextrose 5% In Water 1000 Ml) 1,000 mls @ 0 mls/hr IV .Q0M PRN; Protocol; Per Protocol PRN Reason: Hypoglycemia Protocol Insulin Aspart (Novolog) 6 unit SC TID [facility] Insulin Detemir (Levemir) 30 unit SC BID [facility] Last Admin: 01/20/18 19:28 Dose: 30 units Insulin Human Regular (Novolin R) 0 unit SC ACHS [facility] PRN Reason: Protocol Last Admin: 01/21/18 07:56 Dose: Not Given Losartan Potassium (Cozaar) 25 mg PO DAILY [facility] Last Admin: 01/21/18 09:39 Dose: 25 mg Metformin HCl (Glucophage) 1,000 mg PO BID [facility] Last Admin: 01/21/18 09:39 Dose: 1,000 mg Metoprolol Tartrate (Lopressor) 25 mg PO BID [facility] Last Admin: 01/21/18 09:39 Dose: 25 mg Polymyxin/Trimethoprim Sulfate (Polytrim Ophth Soln) 0 ml OD BID [facility] Last Admin: 01/20/18 18:29 Dose: 1 drop Prednisone (Prednisone Tab) 20 mg PO DAILY [facility] Last Admin: 01/21/18 09:39 Dose: 20 mg Rosuvastatin Calcium (Crestor) 10 mg PO HS [facility] Last Admin: 01/20/18 21:34 Dose: 10 mg Sitagliptin Phosphate (Januvia) 50 mg PO BID [facility] Last Admin: 01/21/18 09:39 Dose: 50 mg - Labs Labs: 01/21/18 08:06 01/21/18 08:06 PT 10.1 SECONDS (9.7-12.2) 01/20/18 10:08 INR 0.9 01/20/18 10:08 APTT 37 SECONDS (21-34) H 01/20/18 10:08 - Constitutional Appears: Well, Non-toxic - Eye Exam Eye Exam: Normal appearance - ENT Exam ENT Exam: Mucous Membranes Moist - Neck Exam Neck Exam: Full ROM - Respiratory Exam Respiratory Exam: Clear to Ausculation Bilateral - Cardiovascular Exam Cardiovascular Exam: REGULAR RHYTHM, RRR, +S1, +S2. absent: JVD, Rubs - GI/Abdominal Exam GI & Abdominal Exam: Soft, Normal Bowel Sounds - Extremities Exam Extremities Exam: Full ROM Assessment and Plan - Assessment and Plan (Free Text) Assessment: uncontrolled diabets aic 12 poor diet computator eval sugars better today bp; not ideal monitor chest pain neg CARINE Dr. Bustamante folowing failed eye procedure on steroids per opthalmologyst recomm monitor sugars gi and dvt prophylaxis
--- NOTE | 2018-01-21 09:55 | CP.PCM.PN ---
<Rigo Mack E - Last Filed: 01/21/18 14:16> Subjective - Date & Time of Evaluation Date of Evaluation: 01/21/18 Time of Evaluation: 09:20 - Subjective Subjective: Cardiology progress note ( Dr. Bustamante's service) Patient was seen and examined at bedside in no acute distress. Patient states that she is doing well with improve symptoms. Patient denies fever, chills, nausea, vomiting, chest pain, palpations SOB and dizziness. Patient still admits to right eye pain and headache due to recent eye surgery; which has been addressed by surgeon and PMD. Objective - Vital Signs/Intake and Output Vital Signs (last 24 hours): Temp Pulse Resp BP Pulse Ox 98.1 F 64 20 117/75 97 01/21/18 08:00 01/21/18 08:00 01/21/18 08:00 01/21/18 09:39 01/21/18 08:00 - Medications Medications: Current Medications Amlodipine Besylate (Norvasc) 5 mg PO DAILY [facility] Last Admin: 01/21/18 09:39 Dose: 5 mg Aspirin (Ecotrin) 81 mg PO DAILY [facility] Last Admin: 01/21/18 09:39 Dose: 81 mg Clopidogrel Bisulfate (Plavix) 75 mg PO DAILY [facility] Last Admin: 01/21/18 09:39 Dose: 75 mg Cyclopentolate HCl (Cyclogyl 1% Opht) 0 drop OD TID [facility] Last Admin: 01/21/18 09:40 Dose: 1 drop Dextrose (Dextrose 50% Inj) 0 ml IVP .STAT PRN; Protocol PRN Reason: Hypoglycemia Protocol Dextrose (Glutose 15) 0 gm PO .ONCE PRN; Protocol PRN Reason: Hypoglycemia Protocol Famotidine (Pepcid) 20 mg PO BID [facility] Last Admin: 01/21/18 09:39 Dose: 20 mg Glucagon (Glucagen Diagnostic Kit) 0 mg IM .STAT PRN; Protocol PRN Reason: Hypoglycemia Protocol Heparin Sodium (Porcine) (Heparin) 5,000 units SC Q8 [facility] Last Admin: 01/21/18 06:02 Dose: 5,000 units Dextrose (Dextrose 5% In Water 1000 Ml) 1,000 mls @ 0 mls/hr IV .Q0M PRN; Protocol; Per Protocol PRN Reason: Hypoglycemia Protocol Insulin Aspart (Novolog) 6 unit SC TID [facility] Insulin Detemir (Levemir) 30 unit SC BID [facility] Last Admin: 01/20/18 19:28 Dose: 30 units Insulin Human Regular (Novolin R) 0 unit SC ACHS [facility] PRN Reason: Protocol Last Admin: 01/21/18 07:56 Dose: Not Given Losartan Potassium (Cozaar) 25 mg PO DAILY [facility] Last Admin: 01/21/18 09:39 Dose: 25 mg Metformin HCl (Glucophage) 1,000 mg PO BID [facility] Last Admin: 01/21/18 09:39 Dose: 1,000 mg Metoprolol Tartrate (Lopressor) 25 mg PO BID [facility] Last Admin: 01/21/18 09:39 Dose: 25 mg Polymyxin/Trimethoprim Sulfate (Polytrim Ophth Soln) 0 ml OD BID [facility] Last Admin: 01/21/18 09:42 Dose: 1 drop Prednisone (Prednisone Tab) 20 mg PO DAILY [facility] Last Admin: 01/21/18 09:39 Dose: 20 mg Rosuvastatin Calcium (Crestor) 10 mg PO HS [facility] Last Admin: 01/20/18 21:34 Dose: 10 mg Sitagliptin Phosphate (Januvia) 50 mg PO BID [facility] Last Admin: 01/21/18 09:39 Dose: 50 mg - Labs Labs: 01/21/18 08:06 01/21/18 08:06 PT 10.1 SECONDS (9.7-12.2) 01/20/18 10:08 INR 0.9 01/20/18 10:08 APTT 37 SECONDS (21-34) H 01/20/18 10:08 - Constitutional Appears: Well, No Acute Distress - Head Exam Head Exam: ATRAUMATIC, NORMAL INSPECTION - Eye Exam Eye Exam: EOMI, Normal appearance - ENT Exam ENT Exam: Mucous Membranes Moist - Respiratory Exam Respiratory Exam: Clear to Ausculation Bilateral, NORMAL BREATHING PATTERN. absent: Chest Wall Tenderness, Decreased Breath Sounds, Rhonchi, Wheezes - Cardiovascular Exam Cardiovascular Exam: REGULAR RHYTHM. absent: Tachycardia, Diastolic murmur, Murmur - GI/Abdominal Exam GI & Abdominal Exam: Soft, Normal Bowel Sounds. absent: Distended, Firm, Guarding, Rigid, Tenderness - Extremities Exam Extremities Exam: Normal Inspection. absent: Calf Tenderness, Normal Capillary Refill, Pedal Edema - Neurological Exam Neurological Exam: Alert, Awake, Oriented x3 - Psychiatric Exam Psychiatric exam: Normal Affect, Normal Mood - Skin Skin Exam: Normal Color Assessment and Plan (1) Chest pain Assessment & Plan: R/o ACS On admission: - Troponin negative X3, and respective EKG changes - No EKG changes from previous EKGs - BNP: 96.6, within normal limit - HgbA1C (10/02/17): 10.1; Repeat HgbA1C: 12.2 - Lipid panel: TGL:178, Chol: 135, LDL: 53 and HDL: 44. Repeat lipid panel (01/21): TGL:370, Chol:145, LDL:56 and HDL: 35 - TSH and Free T4: 4.26/1.05, within normal limit Echocardiogram (04/22/17): Left ventricle systolic function is normal, EF (50-55 %) and diastolic dysfunction. Please refer to the EMR for complete impression. F /u offIcial report from repeat echocardiogram. Cardiac catherization (05/11/17): Normal LV systolic function, prior LAD stent, RCA ostial to proximal 95% to 99% stenosis. Aortic root angiogram reaveled. No aortic dissection or aortic aneursym F/u pharmacology stress test. All plans and management discussed with Dr. Bustamante Status: Acute <Kenton Bustamante - Last Filed: 01/22/18 06:54> Objective - Vital Signs/Intake and Output Vital Signs (last 24 hours): Temp Pulse Resp BP Pulse Ox 98.4 F 72 20 121/65 96 01/21/18 23:12 01/22/18 03:00 01/21/18 23:12 01/21/18 23:12 01/22/18 03:00 - Medications Medications: Current Medications Amlodipine Besylate (Norvasc) 5 mg PO DAILY [facility] Last Admin: 01/21/18 09:39 Dose: 5 mg Aspirin (Ecotrin) 81 mg PO DAILY [facility] Last Admin: 01/21/18 09:39 Dose: 81 mg Clopidogrel Bisulfate (Plavix) 75 mg PO DAILY [facility] Last Admin: 01/21/18 09:39 Dose: 75 mg Cyclopentolate HCl (Cyclogyl 1% Opht) 0 drop OD TID [facility] Last Admin: 01/21/18 18:10 Dose: 1 drop Dextrose (Dextrose 50% Inj) 0 ml IVP .STAT PRN; Protocol PRN Reason: Hypoglycemia Protocol Dextrose (Glutose 15) 0 gm PO .ONCE PRN; Protocol PRN Reason: Hypoglycemia Protocol Famotidine (Pepcid) 20 mg PO BID [facility] Last Admin: 01/21/18 18:09 Dose: 20 mg Glucagon (Glucagen Diagnostic Kit) 0 mg IM .STAT PRN; Protocol PRN Reason: Hypoglycemia Protocol Heparin Sodium (Porcine) (Heparin) 5,000 units SC Q8 [facility] Last Admin: 01/22/18 05:25 Dose: 5,000 units Dextrose (Dextrose 5% In Water 1000 Ml) 1,000 mls @ 0 mls/hr IV .Q0M PRN; Protocol; Per Protocol PRN Reason: Hypoglycemia Protocol Insulin Detemir (Levemir) 30 unit SC BID [facility] Last Admin: 01/21/18 18:11 Dose: 30 units Insulin Human Regular (Novolin R) 0 unit SC ACHS [facility] PRN Reason: Protocol Last Admin: 01/21/18 21:38 Dose: Not Given Losartan Potassium (Cozaar) 25 mg PO DAILY [facility] Last Admin: 01/21/18 09:39 Dose: 25 mg Metformin HCl (Glucophage) 1,000 mg PO BID [facility] Last Admin: 01/21/18 18:08 Dose: 1,000 mg Metoprolol Tartrate (Lopressor) 25 mg PO BID [facility] Last Admin: 01/21/18 18:11 Dose: 25 mg Polymyxin/Trimethoprim Sulfate (Polytrim Ophth Soln) 0 ml OD BID [facility] Last Admin: 01/21/18 18:11 Dose: 1 drop Prednisone (Prednisone Tab) 20 mg PO DAILY [facility] Last Admin: 01/21/18 09:39 Dose: 20 mg Rosuvastatin Calcium (Crestor) 10 mg PO HS [facility] Last Admin: 01/21/18 21:38 Dose: 10 mg Sitagliptin Phosphate (Januvia) 50 mg PO BID [facility] Last Admin: 01/21/18 18:09 Dose: 50 mg Tramadol HCl (Ultram) 50 mg PO Q8 PRN PRN Reason: Pain, moderate (4-7) Last Admin: 01/22/18 01:50 Dose: 50 mg - Labs Labs: 01/21/18 08:06 01/21/18 08:06 PT 10.1 SECONDS (9.7-12.2) 01/20/18 10:08 INR 0.9 01/20/18 10:08 APTT 37 SECONDS (21-34) H 01/20/18 10:08 Assessment and Plan - Assessment and Plan (Free Text) Assessment: Patient seen and evaluated personally by me Plan of care d/w the medical director and as documented
[2018-01-21] MEDS: Insulin Detemir 100 units/ml Vial (Levemir) SC SCH ×2 (10:06→18:11)
[2018-01-21] MEDS: (Novolog) Insulin Aspart, Recombinant 100 u/ml 10 ml vial SC SCH ×2 (12:10→16:58)
--- NOTE | 2018-01-21 23:12 | CARD ---
APPROVED REPORT Date of service: 01/21/2018 EXAM: Two-dimensional and M-mode echocardiogram with Doppler and color Doppler. Other Information Quality : GoodRhythm : INDICATION Cardiac Disease: CAD Chest Pain RISK FACTORS Hypertension Diabetes 2D DIMENSIONS IVSd1.0 (0.7-1.1cm)LVDd3.5 (3.9-5.9cm) PWd1.0 (0.7-1.1cm)LVDs2.1 (2.5-4.0cm) FS (%) 39.6 %LVEF (%)71.2 (>50%) M-Mode DIMENSIONS Left Atrium (MM)3.46 (2.5-4.0cm)Aortic Root2.94 (2.2-3.7cm) Aortic Cusp Exc.1.44 (1.5-2.0cm) Mitral Valve MV E Rhfcdqyy76.5cm/sMV A Ppcpwuud898.8cm/sE/A ratio0.6 TDI E/Lateral E'0.0E/Medial E'0.0 Tricuspid Valve TR Peak [id number]/sTR Peak Gr.[id number] LEFT VENTRICLE The left ventricle is normal size. There is normal left ventricular wall thickness. Left ventricle systolic function is normal. The Ejection Fraction is 65-70%. There is normal LV segmental wall motion. Transmitral Doppler flow pattern is Grade I-abnormal relaxation pattern. There is no ventricular septal defect visualized. RIGHT VENTRICLE The right ventricle is normal size. The right ventricular systolic function is normal. ATRIA The left atrium is mildly dilated. The right atrium size is normal. AORTIC VALVE The aortic valve is mildly sclerotic. The aortic valve is tri-cuspid. No aortic regurgitation is present. There is no aortic valvular stenosis. MITRAL VALVE Mitral annular calcification is mild. There is no evidence of mitral valve prolapse. Mitral regurgitation is trace. TRICUSPID VALVE The tricuspid valve is normal in structure. There is trace tricuspid regurgitation. Right ventricular systolic pressure is estimated at less than 30 mmHg. There is no pulmonary hypertension. PULMONIC VALVE The pulmonic valve is not well visualized. There is no pulmonic valvular regurgitation. GREAT VESSELS The aortic root is normal in size. The ascending aorta is normal in size. The IVC is normal in size and collapses >50% with inspiration. PERICARDIAL EFFUSION There is no pericardial effusion. <Conclusion> Left ventricle systolic function is normal. The Ejection Fraction is 65-70%. Transmitral Doppler flow pattern is Grade I-abnormal relaxation pattern. Mitral regurgitation is trace.
--- NOTE | 2018-01-21 23:57 | CARD ---
APPROVED REPORT Date of service: 01/20/2018 EKG Measurement Heart [id number] <Conclusion> Normal sinus rhythm Nonspecific T wave abnormality Abnormal ECG
--- NOTE | 2018-01-21 23:57 | CARD ---
APPROVED REPORT Date of service: 01/20/2018 EKG Measurement Heart [id number] <Conclusion> Normal sinus rhythm T wave abnormality, consider anterior ischemia Abnormal ECG
--- NOTE | 2018-01-21 23:58 | CARD ---
APPROVED REPORT Date of service: 01/20/2018 EKG Measurement Heart [id number] <Conclusion> Normal sinus rhythm Possible Left atrial enlargement Nonspecific ST and T wave abnormality, consider ant. ischemia. Abnormal ECG
[2018-01-22 07:35] LABS: ALB/GLOB RATIO 1.3 (1.0-2.1); ALT/SGPT 20 U/L (9-52); AST/SGOT 21 U/L (14-36); BLOOD UREA NITROGEN 25 mg/dL (7-17); CALCIUM 10.1 mg/dl (8.6-10.4); GFR NON-AFRICAN AMERICAN > 60
[2018-01-22] MEDS: (Novolin R) Insulin Human Regular 100 units/ml vial SC SCH ×3 (07:38→17:19)
[2018-01-22 07:42] LABS: BASO % 0.3 % (0.0-2.0); EOS # 0.1 K/uL (0.0-0.7); EOS % 0.4 % (0.0-4.0); HEMOGLOBIN 11.6 g/dL (11.0-16.0); LYMPH % 25.1 % (20.0-40.0); MEAN CELL VOLUME 78.1 fL (81.0-99.0); MEAN CORPUSCULAR HEMOGLOBIN 26.1 pg (27.0-31.0); MEAN CORPUSCULAR HGB CONC 33.5 g/dL (33.0-37.0); MEAN PLATELET VOLUME 9.7 fL (7.2-11.7); MONO # 0.8 K/uL (0.0-0.8); MONO % 6.3 % (0.0-10.0); NEUT # 8.2 K/uL (1.8-7.0); NEUT % 67.9 % (50.0-75.0); RBC 4.45 Mil/uL (3.80-5.20); RED CELL DISTRIBUTION WIDTH 16.3 % (11.5-14.5); WHITE BLOOD COUNT 12.1 K/uL (4.8-10.8)
[2018-01-22] MEDS ORDERED: Caffeine Citrated **INJ** 20 MG/ML IV ONE (07:57)
[2018-01-22] MEDS: Cyclopentolate 1% Opth (2 ml) OD SCH ×3 (10:41→17:10)
[2018-01-22] MEDS: Insulin Detemir 100 units/ml Vial (Levemir) SC SCH ×2 (10:42→17:11)
[2018-01-22] MEDS: Polymyxin/Trimethoprim Ophth Soln OD SCH ×2 (10:42→17:11)
--- NOTE | 2018-01-22 15:56 | CP.PCM.PN ---
Subjective - Date & Time of Evaluation Date of Evaluation: 01/22/18 - Subjective Subjective: Pt with some headache today nurse gave her some toradol had stress test this AM Objective - Vital Signs/Intake and Output Vital Signs (last 24 hours): Temp Pulse Resp BP Pulse Ox 97.9 F 73 20 130/72 96 01/22/18 07:00 01/22/18 12:31 01/22/18 07:00 01/22/18 12:31 01/22/18 07:00 - Medications Medications: Current Medications Amlodipine Besylate (Norvasc) 5 mg PO DAILY [facility] Last Admin: 01/22/18 12:28 Dose: 5 mg Aspirin (Ecotrin) 81 mg PO DAILY [facility] Last Admin: 01/22/18 12:28 Dose: 81 mg Clopidogrel Bisulfate (Plavix) 75 mg PO DAILY [facility] Last Admin: 01/22/18 12:28 Dose: 75 mg Cyclopentolate HCl (Cyclogyl 1% Opht) 0 drop OD TID [facility] Last Admin: 01/22/18 14:12 Dose: 1 drop Dextrose (Dextrose 50% Inj) 0 ml IVP .STAT PRN; Protocol PRN Reason: Hypoglycemia Protocol Dextrose (Glutose 15) 0 gm PO .ONCE PRN; Protocol PRN Reason: Hypoglycemia Protocol Famotidine (Pepcid) 20 mg PO BID [facility] Last Admin: 01/22/18 10:42 Dose: Not Given Glucagon (Glucagen Diagnostic Kit) 0 mg IM .STAT PRN; Protocol PRN Reason: Hypoglycemia Protocol Heparin Sodium (Porcine) (Heparin) 5,000 units SC Q8 [facility] Last Admin: 01/22/18 14:01 Dose: 5,000 units Dextrose (Dextrose 5% In Water 1000 Ml) 1,000 mls @ 0 mls/hr IV .Q0M PRN; Protocol; Per Protocol PRN Reason: Hypoglycemia Protocol Insulin Detemir (Levemir) 30 unit SC BID [facility] Last Admin: 01/22/18 10:42 Dose: Not Given Insulin Human Regular (Novolin R) 0 unit SC ACHS [facility] PRN Reason: Protocol Last Admin: 01/22/18 12:29 Dose: 3 units Losartan Potassium (Cozaar) 25 mg PO DAILY [facility] Last Admin: 01/22/18 12:28 Dose: 25 mg Metformin HCl (Glucophage) 1,000 mg PO BID [facility] Last Admin: 01/22/18 10:42 Dose: Not Given Metoprolol Tartrate (Lopressor) 25 mg PO BID [facility] Last Admin: 01/22/18 10:42 Dose: Not Given Polymyxin/Trimethoprim Sulfate (Polytrim Ophth Soln) 0 ml OD BID [facility] Last Admin: 01/22/18 10:42 Dose: Not Given Prednisone (Prednisone Tab) 20 mg PO DAILY [facility] Last Admin: 01/22/18 12:28 Dose: 20 mg Rosuvastatin Calcium (Crestor) 10 mg PO HS [facility] Last Admin: 01/21/18 21:38 Dose: 10 mg Sitagliptin Phosphate (Januvia) 50 mg PO BID [facility] Last Admin: 01/22/18 10:42 Dose: Not Given Tramadol HCl (Ultram) 50 mg PO Q8 PRN PRN Reason: Pain, moderate (4-7) Last Admin: 01/22/18 12:28 Dose: 50 mg - Labs Labs: 01/22/18 07:10 01/22/18 07:10 PT 10.1 SECONDS (9.7-12.2) 01/20/18 10:08 INR 0.9 01/20/18 10:08 APTT 37 SECONDS (21-34) H 01/20/18 10:08 - Constitutional Appears: Non-toxic Assessment and Plan - Assessment and Plan (Free Text) Assessment: DM; better controlled Chest pain /cad had stress test this AM awating cardic input
--- NOTE | 2018-01-22 20:04 | CP.PCM.PN ---
Subjective - Date & Time of Evaluation Date of Evaluation: 01/22/18 Time of Evaluation: 20:03 - Subjective Subjective: Patient s/p stress test Normal stress test and Normal EF Medical management Objective - Vital Signs/Intake and Output Vital Signs (last 24 hours): Temp Pulse Resp BP Pulse Ox 97.3 F L 80 20 125/78 96 01/22/18 15:35 01/22/18 15:35 01/22/18 15:35 01/22/18 17:10 01/22/18 15:35 - Medications Medications: Current Medications Amlodipine Besylate (Norvasc) 5 mg PO DAILY [facility] Last Admin: 01/22/18 12:28 Dose: 5 mg Aspirin (Ecotrin) 81 mg PO DAILY [facility] Last Admin: 01/22/18 12:28 Dose: 81 mg Clopidogrel Bisulfate (Plavix) 75 mg PO DAILY [facility] Last Admin: 01/22/18 12:28 Dose: 75 mg Cyclopentolate HCl (Cyclogyl 1% Opht) 0 drop OD TID [facility] Last Admin: 01/22/18 17:10 Dose: 1 drop Dextrose (Dextrose 50% Inj) 0 ml IVP .STAT PRN; Protocol PRN Reason: Hypoglycemia Protocol Dextrose (Glutose 15) 0 gm PO .ONCE PRN; Protocol PRN Reason: Hypoglycemia Protocol Famotidine (Pepcid) 20 mg PO BID [facility] Last Admin: 01/22/18 17:10 Dose: 20 mg Glucagon (Glucagen Diagnostic Kit) 0 mg IM .STAT PRN; Protocol PRN Reason: Hypoglycemia Protocol Heparin Sodium (Porcine) (Heparin) 5,000 units SC Q8 [facility] Last Admin: 01/22/18 14:01 Dose: 5,000 units Dextrose (Dextrose 5% In Water 1000 Ml) 1,000 mls @ 0 mls/hr IV .Q0M PRN; Protocol; Per Protocol PRN Reason: Hypoglycemia Protocol Insulin Detemir (Levemir) 30 unit SC BID [facility] Last Admin: 01/22/18 17:11 Dose: 30 units Insulin Human Regular (Novolin R) 0 unit SC ACHS [facility] PRN Reason: Protocol Last Admin: 01/22/18 17:19 Dose: 4 units Losartan Potassium (Cozaar) 25 mg PO DAILY [facility] Last Admin: 01/22/18 12:28 Dose: 25 mg Metformin HCl (Glucophage) 1,000 mg PO BID [facility] Last Admin: 01/22/18 17:10 Dose: 1,000 mg Metoprolol Tartrate (Lopressor) 25 mg PO BID [facility] Last Admin: 01/22/18 17:10 Dose: 25 mg Polymyxin/Trimethoprim Sulfate (Polytrim Ophth Soln) 0 ml OD BID [facility] Last Admin: 01/22/18 17:11 Dose: 1 drop Prednisone (Prednisone Tab) 20 mg PO DAILY [facility] Last Admin: 01/22/18 12:28 Dose: 20 mg Rosuvastatin Calcium (Crestor) 10 mg PO HS [facility] Last Admin: 01/21/18 21:38 Dose: 10 mg Sitagliptin Phosphate (Januvia) 50 mg PO BID [facility] Last Admin: 01/22/18 17:10 Dose: 50 mg Tramadol HCl (Ultram) 50 mg PO Q8 PRN PRN Reason: Pain, moderate (4-7) Last Admin: 01/22/18 19:10 Dose: 50 mg - Labs Labs: 01/22/18 07:10 01/22/18 07:10 PT 10.1 SECONDS (9.7-12.2) 01/20/18 10:08 INR 0.9 01/20/18 10:08 APTT 37 SECONDS (21-34) H 01/20/18 10:08
[2018-01-23 07:39] LABS: ALB/GLOB RATIO 1.4 (1.0-2.1); ALBUMIN 4.3 g/dL (3.5-5.0); ALT/SGPT 26 U/L (9-52); AST/SGOT 33 U/L (14-36); BLOOD UREA NITROGEN 21 mg/dL (7-17); CALCIUM 10.2 mg/dl (8.6-10.4); GFR NON-AFRICAN AMERICAN > 60
[2018-01-23 07:43] LABS: BASO % 0.4 % (0.0-2.0); EOS % 0.1 % (0.0-4.0); HEMOGLOBIN 11.8 g/dL (11.0-16.0); LYMPH # 2.1 K/uL (1.0-4.3); LYMPH % 18.6 % (20.0-40.0); MEAN CELL VOLUME 77.4 fL (81.0-99.0); MEAN CORPUSCULAR HEMOGLOBIN 26.3 pg (27.0-31.0); MEAN PLATELET VOLUME 9.9 fL (7.2-11.7); MONO # 0.5 K/uL (0.0-0.8); MONO % 4.7 % (0.0-10.0); NEUT # 8.6 K/uL (1.8-7.0); NEUT % 76.2 % (50.0-75.0); NRBC % 0.1 % (0.0-2.0); RBC 4.49 Mil/uL (3.80-5.20); RED CELL DISTRIBUTION WIDTH 16.7 % (11.5-14.5); WHITE BLOOD COUNT 11.3 K/uL (4.8-10.8)
[2018-01-23 07:52] VITALS: PULSE 68; TEMP 97.9
[2018-01-23] MEDS: (Novolin R) Insulin Human Regular 100 units/ml vial SC SCH (08:33)
[2018-01-23 09:34] VITALS: BP 138/74
[2018-01-23] MEDS: Cyclopentolate 1% Opth (2 ml) OD SCH (09:34)
[2018-01-23] MEDS: Polymyxin/Trimethoprim Ophth Soln OD SCH (09:34)
[2018-01-23] MEDS: Insulin Detemir 100 units/ml Vial (Levemir) SC SCH (09:34)
--- NOTE | 2018-01-23 11:39 | CP.PCM.PN ---
Subjective - Date & Time of Evaluation Date of Evaluation: 01/23/18 Time of Evaluation: 11:39 Objective - Vital Signs/Intake and Output Vital Signs (last 24 hours): Temp Pulse Resp BP Pulse Ox 97.9 F 68 20 138/74 95 01/23/18 07:00 01/23/18 07:57 01/23/18 07:00 01/23/18 09:32 01/23/18 07:57 Intake and Output: 01/23/18 01/23/18 06:59 18:59 Intake Total 250 Output Total 400 Balance -150 - Medications Medications: Current Medications Amlodipine Besylate (Norvasc) 5 mg PO DAILY [facility] Last Admin: 01/23/18 09:32 Dose: 5 mg Aspirin (Ecotrin) 81 mg PO DAILY [facility] Last Admin: 01/23/18 09:32 Dose: 81 mg Clopidogrel Bisulfate (Plavix) 75 mg PO DAILY [facility] Last Admin: 01/23/18 09:32 Dose: 75 mg Cyclopentolate HCl (Cyclogyl 1% Opht) 0 drop OD TID [facility] Last Admin: 01/23/18 09:34 Dose: 1 drop Dextrose (Dextrose 50% Inj) 0 ml IVP .STAT PRN; Protocol PRN Reason: Hypoglycemia Protocol Dextrose (Glutose 15) 0 gm PO .ONCE PRN; Protocol PRN Reason: Hypoglycemia Protocol Famotidine (Pepcid) 20 mg PO BID [facility] Last Admin: 01/23/18 09:33 Dose: 20 mg Glucagon (Glucagen Diagnostic Kit) 0 mg IM .STAT PRN; Protocol PRN Reason: Hypoglycemia Protocol Heparin Sodium (Porcine) (Heparin) 5,000 units SC Q8 [facility] Last Admin: 01/23/18 05:35 Dose: 5,000 units Dextrose (Dextrose 5% In Water 1000 Ml) 1,000 mls @ 0 mls/hr IV .Q0M PRN; Protocol; Per Protocol PRN Reason: Hypoglycemia Protocol Insulin Detemir (Levemir) 30 unit SC BID [facility] Last Admin: 01/23/18 09:34 Dose: 30 units Insulin Human Regular (Novolin R) 0 unit SC ACHS [facility] PRN Reason: Protocol Last Admin: 01/23/18 08:33 Dose: 2 units Losartan Potassium (Cozaar) 25 mg PO DAILY [facility] Last Admin: 01/23/18 09:32 Dose: 25 mg Metformin HCl (Glucophage) 1,000 mg PO BID [facility] Last Admin: 01/23/18 09:32 Dose: 1,000 mg Metoprolol Tartrate (Lopressor) 25 mg PO BID [facility] Last Admin: 01/23/18 09:32 Dose: 25 mg Polymyxin/Trimethoprim Sulfate (Polytrim Ophth Soln) 0 ml OD BID [facility] Last Admin: 01/23/18 09:34 Dose: 1 drop Prednisone (Prednisone Tab) 20 mg PO DAILY [facility] Last Admin: 01/23/18 09:33 Dose: 20 mg Rosuvastatin Calcium (Crestor) 10 mg PO HS [facility] Last Admin: 01/22/18 21:06 Dose: 10 mg Sitagliptin Phosphate (Januvia) 50 mg PO BID [facility] Last Admin: 01/23/18 09:32 Dose: 50 mg Tramadol HCl (Ultram) 50 mg PO Q8 PRN PRN Reason: Pain, moderate (4-7) Last Admin: 01/23/18 10:33 Dose: 50 mg - Labs Labs: 01/23/18 07:18 01/23/18 07:18 PT 10.1 SECONDS (9.7-12.2) 01/20/18 10:08 INR 0.9 01/20/18 10:08 APTT 37 SECONDS (21-34) H 01/20/18 10:08 Assessment and Plan - Assessment and Plan (Free Text) Assessment: FOLLOW UP WITH DR SHORT AT HER OFFICE NEXT WEEK FRIDAY OR FRIDAY AROUND 12 PM ---CALL FOR APPOINTMENT CONTINUE HOME MEDICATION NEW PRESCRIPTION GIVEN PREDNISONE 5 MG PO DAILY FOR 3 DAYS ULTRACET ONE TAB PO Q12H PRN FOR PAIN ACTIVITY TOLERATED CALL DR SHORT OR GO TO THE EMERGENCY ROOM IF SYMPTOMS RETURN OR WORSEN.
[2018-01-23 12:35] VITALS: O2SAT 98
== END 2018-01-23 12:50 | disposition home or self-care (01) ==
LOC: C.ER 09:31 → C.9E 11:39 → C.5S 12:02
PROVIDERS: ADMIT Internal Medicine; ATTEND Internal Medicine
DX: R07.89 Other chest pain (principal); I25.10 Atherosclerotic heart disease of native coronary artery without angina pectoris; I25.2 Old myocardial infarction; F41.9 Anxiety disorder, unspecified; I12.9 Hypertensive chronic kidney disease with stage 1 through stage 4 chronic kidney disease, or unspecified chronic kidney disease; J45.909 Unspecified asthma, uncomplicated; E11.22 Type 2 diabetes mellitus with diabetic chronic kidney disease; N18.9 Chronic kidney disease, unspecified; Z79.4 Long term (current) use of insulin; Z95.5 Presence of coronary angioplasty implant and graft
CPT/HCPCS: 36415; 71045; 78452; 80053; 80061; 82948; 83036; 83735; 83880; 84100; 84439; 84443; 84484; 85025; 85610; 85730; 93005; 93017; 93306; 99285; A9502; G0378; J1644; J1885; J2270; J2785

== ENCOUNTER 2018-07-23 10:55 | Outpatient (CLI) | payer MEDICARE | END 2018-07-23 10:56 | disposition home or self-care (01) | LOC: C.PAT 10:55 | DX: D17.30 Benign lipomatous neoplasm of skin and subcutaneous tissue of unspecified sites (principal) ==

== ENCOUNTER 2018-07-29 07:20 | Day surgery (SDC) | payer MEDICARE ==
[2018-07-23 11:09] VITALS: BMI 26.6
[~2018-07-29 07:20] MED LIST changes: +Bupivacaine HCl 0.25% PF (10 ml) Inj ONE; -Lactated Ringer's 500 ML IV ONE; -Phenylephrine 2.5% Opht Soln OS SCH; -Tropicamide 1% Opht SOLUTION OS SCH; +ceFAZolin 1 gm in NS 1 GM/100 ML BAG IVPB ONE
[2018-07-29] MEDS ORDERED: Sodium Chloride 0.9% 1,000 ML IV ONE (08:30)
[2018-07-29] MEDS ORDERED: (Novolin R) Insulin Human Regular 100 units/ml vial SC ONE ×3 (08:30→10:22)
[2018-07-29] MEDS ORDERED: (Novolin R) Insulin Human Regular 100 units/ml vial ONE ×2 (08:31→10:22)
[2018-07-29] MEDS ORDERED: Midazolam 2 MG/2 ML VIAL ONE (09:22)
[2018-07-29] MEDS ORDERED: Lidocaine 2% MPF (5 ml) Inj ONE (09:27)
[2018-07-29] MEDS ORDERED: Propofol 10 mg/ml Inj (20 ML) ONE (09:36)
[2018-07-29] MEDS ORDERED: Lidocaine Hydrochloride 5 ML INJ ONE (10:13)
[2018-07-29] MEDS ORDERED: HYDROmorphone 0.5 mg/0.5 ml ISec IVP PRN (10:15)
--- NOTE | 2018-07-29 10:17 | PCM.SURG1 ---
Surgeon's Initial Post Op Note - Surgeon's Notes Surgeon: jenelle Bike Technician: michelle Type of Anesthesia: IV Sedation Anesthesia Administered By: mine Pre-Operative Diagnosis: lipoma right thigh Operative Findings: same Post-Operative Diagnosis: same Operation Performed: excision 3 cm lipoma right thigh Specimen/Specimens Removed: lipoma Estimated Blood Loss: EBL {In ML}: 5 Blood Products Given: N/A Drains Used: No Drains Post-Op Condition: Good Date of Surgery/Procedure: 07/29/18 Time of Surgery/Procedure: 10:17
[2018-07-29 10:44] VITALS: O2SAT 100
[2018-07-29 11:44] VITALS: BP 146/80; PULSE 70; RESP 18; TEMP 97
--- NOTE | 2018-07-29 19:07 | OP ---
PROCEDURE DATE: 07/29/2018 PREOPERATIVE DIAGNOSIS: Lipoma, right thigh. POSTOPERATIVE DIAGNOSIS: Lipoma, right thigh. PROCEDURE CARRIED OUT: Excision of 3-cm lipoma, right thigh. SURGEON: Kiran Su Jr., MD REVERBERATORY FURNACE OPERATOR: . ANESTHESIOLOGIST: Steve Collins MD TYPE OF ANESTHESIA: Local with sedation. INDICATIONS: A 73-year-old woman with history of adult-onset diabetes with a painful lump on her inner thigh, right side. OPERATIVE FINDINGS: The lesion was removed completely releasing the encapsulated lipoma. DESCRIPTION OF PROCEDURE: The patient was given intravenous antibiotics and local anesthesia. The area was excised and the skin was closed after obtaining hemostasis and sterile subcuticular closure was carried out. Blood loss for the procedure was 10 mL. Operation carried out was 3-cm lipoma, right thigh. Kiran Su Jr., MD
== END 2018-07-29 11:47 | disposition home or self-care (01) ==
LOC: C.SDS 07:20
PROVIDERS: ATTEND Surgery Vascular Surgery
DX: D17.23 Benign lipomatous neoplasm of skin and subcutaneous tissue of right leg (principal); E11.9 Type 2 diabetes mellitus without complications
CPT/HCPCS: 11403; 36415; 82948; 85610; 85730; 88304; J0690; J2250; J2704; J3010; J7030

== ENCOUNTER 2018-09-27 09:56 | Observation (INO) | payer MEDICARE ==
[2018-09-27 09:57] VITALS: BMI 26.6
[2018-09-27] MEDS ORDERED: Vancomycin 1 GM 1 GM/250 ML BAG IV STA (10:52)
[2018-09-27] MEDS ORDERED: Sodium Chloride 0.9% 500 ML IV STA (10:53)
[2018-09-27] MEDS ORDERED: Vancomycin 1 GM 1 GM/250 ML BAG IVPB ONE (11:06)
[2018-09-27] MEDS ORDERED: Sodium Chloride 0.9% 1,000 ML ONE (11:06)
[2018-09-27 11:29] LABS: BASO # 0.1 K/uL (0.0-0.2); BASO % 0.8 % (0.0-2.0); EOS # 0.3 K/uL (0.0-0.7); EOS % 3.5 % (0.0-4.0); HEMOGLOBIN 11.5 g/dL (11.0-16.0); LYMPH % 25.7 % (20.0-40.0); MEAN CORPUSCULAR HEMOGLOBIN 24.8 pg (27.0-31.0); MEAN PLATELET VOLUME 9.8 fL (7.2-11.7); MONO # 0.4 K/uL (0.0-0.8); MONO % 5.8 % (0.0-10.0); NEUT % 64.2 % (50.0-75.0); RBC 4.65 Mil/uL (3.80-5.20); RED CELL DISTRIBUTION WIDTH 16.6 % (11.5-14.5); WHITE BLOOD COUNT 7.8 K/uL (4.8-10.8)
[2018-09-27 11:32] LABS: MEAN CELL VOLUME 75.3 fL (81.0-99.0)
[2018-09-27 11:41] LABS: ALB/GLOB RATIO 1.3 (1.0-2.1); ALBUMIN 4.4 g/dL (3.5-5.0); BLOOD UREA NITROGEN 17 mg/dL (7-17); CALCIUM 9.8 mg/dl (8.6-10.4); GFR NON-AFRICAN AMERICAN > 60
[2018-09-27 11:42] LABS: ALT/SGPT 12 U/L (9-52); AST/SGOT 21 U/L (14-36)
--- NOTE | 2018-09-27 12:24 | C.PDOC ---
History Of Present Illness 73 year old female with PMHx of diabetes presents to the ED complaining of pain to left great toe for 3 weeks but worsening for the last several days. Describes pain as throbbing. Denies fever, chills, weakness, or numbness. Also states her blood sugar is high. Patient has not been seen by PMD. PMD: Dr. Back Time Seen by Provider: 09/27/18 10:15 Chief Complaint (Nursing): Lower Extremity Problem/Injury History Per: Patient History/Exam Limitations: no limitations Onset/Duration Of Symptoms: Days Current Symptoms Are (Timing): Still Present Past Medical History Reviewed: Historical Data, Nursing Documentation, Vital Signs Vital Signs: Last Vital Signs Temp 98.4 F 09/27/18 10:05 Pulse 88 09/27/18 10:05 Resp 18 09/27/18 10:05 BP 185/74 H 09/27/18 10:05 Pulse Ox 97 09/27/18 10:05 Primary Care Provider: Holli Back - Medical History PMH: Diabetes, HTN, Hypercholesterolemia, Osteoporosis Denies: Chronic Kidney Disease Surgical History: Coronary Stent - [facility] Procedures CORONAR ARTERIOGR-2 CATH (03/26/14) FLUOROSCOPY OF LEFT HEART USING LOW OSMOLAR CONTRAST (04/21/17) FLUOROSCOPY OF MULT COR ART USING L OSM CONTRAST (04/21/17) INSERTION OF TWO VASCULAR STENTS (03/26/14) INSRT OF DRUG-ELUTING CORON ARTERY STENTS(S) (03/26/14) LEFT HEART CARDIAC CATH (03/26/14) LT HEART ANGIOCARDIOGRAM (03/26/14) MEASURE OF CARDIAC SAMPL & PRESSURE, L HEART, PERC APPROACH (04/21/17) PERCUTANEOUS TRANSLUMINAL CORONARY ANGIOPLASTY [PTCA] (03/26/14) PROCEDURE ON SINGLE VESSEL (03/26/14) PROCTOTOMY (11/13/13) Family History: States: No Known Family Hx - Social History Hx Tobacco Use: No Hx Alcohol Use: No Hx Substance Use: No - Immunization History Hx Tetanus Toxoid Vaccination: Yes Hx Influenza Vaccination: Yes Hx Pneumococcal Vaccination: Yes Review Of Systems Except As Marked, All Systems Reviewed And Found Negative. Constitutional: Negative for: Fever, Chills Musculoskeletal: Positive for: Foot Pain (left great toe pain) Neurological: Negative for: Weakness, Numbness Physical Exam - Physical Exam Appears: Non-toxic, No Acute Distress Skin: Warm, Dry, No Rash, Other (erythema and swelling to left great toe, no open sores) Head: Normacephalic Eye(s): bilateral: Normal Inspection, PERRL, EOMI Nose: Normal Oral Mucosa: Moist Neck: Supple Chest: Symmetrical Cardiovascular: Rhythm Regular Respiratory: Normal Breath Sounds, No Rales, No Rhonchi, No Wheezing Gastrointestinal/Abdominal: Soft, No Tenderness Extremity: Bilateral: Normal ROM Pulses: Left Dorsalis Pedis: Normal, Right Dorsalis Pedis: Normal Neurological/Psych: Oriented x3, Normal Speech Gait: Steady ED Course And Treatment - Laboratory Results Result Diagrams: 09/27/18 11:26 09/27/18 11:26 Lab Results: Total Bilirubin 0.6 mg/dL (0.2-1.3) 09/27/18 11:26 AST 21 U/L (14-36) 09/27/18 11:26 ALT 12 U/L (9-52) 09/27/18 11:26 Alkaline Phosphatase 110 U/L (38-126) 09/27/18 11:26 Total Protein 7.9 g/dL (6.3-8.3) 09/27/18 11:26 Albumin 4.4 g/dL (3.5-5.0) 09/27/18 11:26 Globulin 3.4 gm/dL (2.2-3.9) 09/27/18 11:26 Albumin/Globulin Ratio 1.3 (1.0-2.1) 09/27/18 11:26 O2 Sat by Pulse Oximetry: 97 (RA) Pulse Ox Interpretation: Normal - Radiology CXR: Interpreted by Me CXR Interpretation: Yes: No Acute Disease - Other Rad foot xray X-Ray: Viewed By Me, Read By Radiologist Interpretation: Accession No. : [id number]. Patient Name / ID : DEWEY ELIZALDE / [id number]. Exam Date : 09/27/2018 11:00:37 ( Approved ). Study Comment : Sex / Age : F / 73Y. Creator : Henry Christopher. Dictator : Andria Gonsales MD. Machine Whitener : Community Association Manager : Andria Gonsales MD. Approver2 : Report Date : 09/27/2018 11:31:12. My Comment : . PROCEDURE: Radiographs of the left great toe. TECHNIQUE:: AP radiograph of the left foot, with oblique and lateral view of the left great toe. 3 view obtained. COMPARISON: None. FINDINGS: BONES: There is lucency and cortical erosion noted at the tip of the distal phalanx of the left big toe suspicious for osteomyelitis. There is also heterogeneous lucency noted at the distal portion of the distal phalanx of the 3rd toe. JOINTS: Arthritic degenerative changes P. SOFT TISSUES: Soft tissue swelling noted at left big toe. OTHER FINDINGS: None. IMPRESSION: Suspicious for osteomyelitis at the tip of the left big toe. Heterogeneous lucency noted at the tip of the 3rd toe. Correlate clinically for possible also osteomyelitis or recent fracture. Progress Note: Patient was treated with vancomycin IV, case was d/w pt's PMD who accepted patient to her service for observation. Disposition - Disposition Disposition: HOSPITALIZED Disposition Time: 12:55 Condition: FAIR - Clinical Impression Clinical Impression: Cellulitis of toe, left - PA / [employer]ITIONS CONSULTANT / Resident Statement MD/ has reviewed & agrees with the documentation as recorded. - Scribe Statement The provider has reviewed the documentation as recorded by the Scribe Radha Sosa All medical record entries made by the Zuleika were at my direction and personally dictated by me. I have reviewed the chart and agree that the record accurately reflects my personal performance of the history, physical exam, medical decision making, and the department course for this patient. I have also personally directed, reviewed, and agree with the discharge instructions and disposition. Decision To Admit - Pt Status Changed To: Hospital Disposition Of: Observation - . Bed Request Type: Regular Admitting Physician: Holli Back Patient Diagnosis: Cellulitis of toe, left
[2018-09-27 13:08] LABS: SQUAMOUS EPITHIAL < 1 /hpf (0-5); URINE BILIRUBIN NEGATIVE (NEGATIVE); URINE BLOOD NEGATIVE (NEGATIVE); URINE CLARITY Clear (Clear); URINE COLOR Straw (YELLOW); URINE GLUCOSE (UA) 3+ mg/dL (Normal); URINE HYALINE CAST 0-2 /lpf (0-2); URINE LEUKOCYTE ESTERASE NEG Leu/uL (Negative); URINE PROTEIN 2+ mg/dL (NEGATIVE); URINE UROBILINOGEN NORMAL mg/dL (0.2-1.0)
--- NOTE | 2018-09-27 14:10 | RAD ---
PROCEDURE: Radiographs of the left great toe. TECHNIQUE:: AP radiograph of the left foot, with oblique and lateral view of the left great toe. 3 view obtained. COMPARISON: None. FINDINGS: BONES: There is lucency and cortical erosion noted at the tip of the distal phalanx of the left big toe suspicious for osteomyelitis. There is also heterogeneous lucency noted at the distal portion of the distal phalanx of the 3rd toe. JOINTS: Arthritic degenerative changes P SOFT TISSUES: Soft tissue swelling noted at left big toe. OTHER FINDINGS: None. IMPRESSION: Suspicious for osteomyelitis at the tip of the left big toe. Heterogeneous lucency noted at the tip of the 3rd toe. Correlate clinically for possible also osteomyelitis or recent fracture.
--- NOTE | 2018-09-27 14:11 | RAD ---
Date of service: 09/27/2018 PROCEDURE: CHEST RADIOGRAPH, 1 VIEW HISTORY: foot infection COMPARISON: Comparison is made with 01/20/2018 FINDINGS: LUNGS: Clear. PLEURA: No pneumothorax or pleural fluid seen. CARDIOVASCULAR: No aortic atherosclerotic calcification present. Normal. OSSEOUS STRUCTURES: No significant abnormalities. VISUALIZED UPPER ABDOMEN: Normal. OTHER FINDINGS: None. IMPRESSION: No active disease.
[2018-09-27] MEDS ORDERED: (Novolog) Insulin Aspart, Recombinant 100 u/ml 10 ml vial SC SCH (16:30)
[2018-09-27] MEDS ORDERED: Sodium Chloride 0.9% 1,000 ML IV SCH (18:00)
[2018-09-27] MEDS ORDERED: Insulin Detemir 100 units/ml Vial (Levemir) SC SCH (18:00)
[2018-09-28] MEDS ORDERED: Insulin Detemir 100 units/ml Vial (Levemir) SC SCH ×3 (07:30→17:25)
[2018-09-28] MEDS: Enoxaparin 40 mg Syringe SC SCH (09:12)
[2018-09-28] MEDS: (Novolog) Insulin Aspart, Recombinant 100 u/ml 10 ml vial SC SCH ×3 (09:13→17:33)
--- NOTE | 2018-09-28 17:29 | CP.PCM.HP ---
History of Present Illness - History of Present Illness History of Present Illness: cc; Infected toe and uncontrolled sugars Pt is a 73 year old female with DM who presented to ER with left hallux pain and erythema for 3 days. Pt states she decided to come to ER because of the pain. Pt reports she has had chills. Pt reports feeling well otherwise. PMHX DM HTh CAD PSH; Allergies Social; no tob no ethoh Present on Admission - Present on Admission Any Indicators Present on Admission: No History of DVT/PE: No Urinary Catheter: No Decubitus Ulcer Present: No History Surgical Site Infection Following: None Review of Systems - Constitutional Constitutional: absent: Chills - EENT Eyes: absent: Discharge Nose/Mouth/Throat: absent: Epistaxis - Cardiovascular Cardiovascular: absent: Chest Pain, Chest Pain with Activity, Orthopnea - Respiratory Respiratory: absent: Hemoptysis, Wheezing - Gastrointestinal Gastrointestinal: absent: Abdominal Pain - Musculoskeletal Musculoskeletal: Arthralgias, Joint Swelling. absent: Abnormal Gait - Neurological Neurological: absent: Abnormal Speech, Behavioral Changes, Dizziness, Numbness Past Patient History - Past Medical History & Family History Past Medical History?: Yes - Past Social History Smoking Status: Never Smoked - CARDIAC Hx Hypercholesterolemia: Yes Hx Hypertension: Yes - PULMONARY Hx Respiratory Disorders: No - NEUROLOGICAL Hx Neurological Disorder: No - HEENT Hx Cataracts: Yes (BILAT.) Other/Comment: visual disturbance in right eye from cataract - RENAL Hx Chronic Kidney Disease: No - ENDOCRINE/METABOLIC Hx Endocrine Disorders: Yes Hx Diabetes Mellitus Type 1: Yes - HEMATOLOGICAL/ONCOLOGICAL Hx Blood Disorders: No - INTEGUMENTARY Hx Dermatological Problems: Yes Other/Comment: HX: LIPOMA RIGHT THIGH - MUSCULOSKELETAL/RHEUMATOLOGICAL Hx Osteoporosis: Yes - GASTROINTESTINAL Hx Gastrointestinal Disorders: No - GENITOURINARY/GYNECOLOGICAL Hx Genitourinary Disorders: No - PSYCHIATRIC Hx Substance Use: No - SURGICAL HISTORY Hx Coronary Stent: Yes - ANESTHESIA Hx Anesthesia: Yes Hx Anesthesia Reactions: No Hx Malignant Hyperthermia: No Meds Home Medications: Home Medication List Medication Instructions Recorded Confirmed Type Insulin Detemir [Levemir] 20 unit SC BID unit 09/29/18 Rx Insulin Detemir [Levemir] 25 unit SC BID unit 09/29/18 Rx Insulin Detemir [Levemir] 25 unit SC BID unit 09/29/18 Rx amLODIPine [Norvasc] 5 mg PO DAILY tab 09/29/18 Rx Allergies/Adverse Reactions: Allergies Allergy/AdvReac Type Severity Reaction Status Date / Time No Known Allergies Allergy Verified 07/23/18 11:09 Physical Exam - Constitutional Appears: Non-toxic - Eye Exam Eye Exam: Normal appearance - ENT Exam ENT Exam: Mucous Membranes Moist - Respiratory Exam Respiratory Exam: Clear to Auscultation Bilateral (left foot hallux, red and tender) - Skin Additional comments: left hallux red, tender and slight swelling Results - Vital Signs Recent Vital Signs: Last Vital Signs Temp 97.9 F 09/28/18 15:00 Pulse 82 09/28/18 15:00 Resp 20 09/28/18 15:00 BP 146/70 09/28/18 15:00 Pulse Ox 99 09/28/18 15:00 - Labs Result Diagrams: 09/27/18 11:26 09/27/18 11:26 Labs: Laboratory Results - last 24 hr 09/27/18 09/28/18 09/28/18 20:53 06:29 11:51 POC Glucose (mg/dL) 160 H 326 H 291 H 09/28/18 15:58 POC Glucose (mg/dL) 224 H Assessment & Plan - Assessment and Plan (Free Text) Assessment: 73 year old with uncontrolled DM and infected toe observation IV abx diabetis control dvt and gi prophylaxis - Date & Time Date: 09/27/18
--- NOTE | 2018-09-28 17:34 | CP.PCM.PN ---
Subjective - Date & Time of Evaluation Date of Evaluation: 09/28/18 Time of Evaluation: 17:34 - Subjective Subjective: Pt states toe is better in terms of pain and redness no other concerns Objective - Vital Signs/Intake and Output Vital Signs (last 24 hours): Temp Pulse Resp BP Pulse Ox 97.9 F 82 20 146/70 99 09/28/18 15:00 09/28/18 15:00 09/28/18 15:00 09/28/18 15:00 09/28/18 15:00 Intake and Output: 09/28/18 09/28/18 06:59 18:59 Intake Total 760 Balance 760 - Medications Medications: Current Medications Amlodipine Besylate (Norvasc) 5 mg PO DAILY [facility] Last Admin: 09/28/18 09:13 Dose: 5 mg Aspirin (Ecotrin) 81 mg PO DAILY [facility] Last Admin: 09/28/18 09:13 Dose: 81 mg Clopidogrel Bisulfate (Plavix) 75 mg PO DAILY [facility] Last Admin: 09/28/18 09:14 Dose: 75 mg Enoxaparin Sodium (Lovenox) 40 mg SC DAILY [facility] Last Admin: 09/28/18 09:12 Dose: 40 mg Famotidine (Pepcid) 20 mg PO DAILY [facility] Last Admin: 09/28/18 09:13 Dose: 20 mg Ceftriaxone Sodium 1 gm/ (Sodium Chloride) 100 mls @ 100 mls/hr IVPB DAILY [facility]; Protocol Last Admin: 09/28/18 09:20 Dose: 100 mls/hr Insulin Aspart (Novolog) 10 unit SC ACTID [facility] Last Admin: 09/28/18 13:22 Dose: 10 units Insulin Detemir (Levemir) 25 unit SC BID [facility] Montelukast Sodium (Singulair) 10 mg PO HS [facility] Rosuvastatin Calcium (Crestor) 10 mg PO HS [facility] - Labs Labs: 09/27/18 11:26 09/27/18 11:26 - Constitutional Appears: Well, Non-toxic - Eye Exam Eye Exam: Normal appearance - ENT Exam ENT Exam: Mucous Membranes Moist - Respiratory Exam Respiratory Exam: Clear to Ausculation Bilateral - Cardiovascular Exam Cardiovascular Exam: REGULAR RHYTHM. absent: JVD - GI/Abdominal Exam GI & Abdominal Exam: Soft (left hallux less red and tender) Assessment and Plan - Assessment and Plan (Free Text) Plan: Toe cellulitis cont abx given risk factors will check for PAD arterial us LE ordered dm; not ideal increased levemir bp is good dvt and gi prophylaxis
[2018-09-28] MEDS: Insulin Detemir 100 units/ml Vial (Levemir) SC SCH (19:10)
[2018-09-29] MEDS: Insulin Detemir 100 units/ml Vial (Levemir) SC SCH ×2 (09:30→18:37)
[2018-09-29] MEDS: Enoxaparin 40 mg Syringe SC SCH (09:30)
[2018-09-29] MEDS: (Novolog) Insulin Aspart, Recombinant 100 u/ml 10 ml vial SC SCH ×3 (09:30→18:37)
[2018-09-29 15:57] VITALS: BP 153/75; PULSE 77; RESP 20; TEMP 97.9; O2SAT 100
--- NOTE | 2018-09-29 18:19 | CP.PCM.DIS ---
Provider - Provider Date of Admission: 09/27/18 12:45 Attending physician: Holli Back MD Consults: 09/27/18 15:04 Inpatient LIABILITY CLAIMS EXAMINER Core Measures Referral Routine Comment: Physician Instructions: Reason For Exam: history of AMI Time Spent in preparation of Discharge (in minutes): 30 Hospital Course - Lab Results Lab Results: Micro Results 09/27/18 12:36 Blood Blood Culture - Preliminary NO GROWTH AFTER 48 HOURS 09/27/18 12:36 Blood Blood Culture - Preliminary NO GROWTH AFTER 48 HOURS Most Recent Lab Values WBC 7.8 K/uL (4.8-10.8) 09/27/18 11:26 RBC 4.65 Mil/uL (3.80-5.20) 09/27/18 11:26 Hgb 11.5 g/dL (11.0-16.0) 09/27/18 11:26 Hct 35.0 % (34.0-47.0) 09/27/18 11:26 MCV 75.3 fL (81.0-99.0) L D 09/27/18 11:26 MCH 24.8 pg (27.0-31.0) L 09/27/18 11:26 MCHC 33.0 g/dL (33.0-37.0) 09/27/18 11:26 RDW 16.6 % (11.5-14.5) H 09/27/18 11:26 Plt Count 202 K/uL (130-400) 09/27/18 11:26 MPV 9.8 fL (7.2-11.7) 09/27/18 11:26 Neut % (Auto) 64.2 % (50.0-75.0) 09/27/18 11:26 Lymph % (Auto) 25.7 % (20.0-40.0) 09/27/18 11:26 [place] % (Auto) 5.8 % (0.0-10.0) 09/27/18 11:26 Eos % (Auto) 3.5 % (0.0-4.0) 09/27/18 11:26 Baso % (Auto) 0.8 % (0.0-2.0) 09/27/18 11:26 Neut # (Auto) 5.0 K/uL (1.8-7.0) 09/27/18 11:26 Lymph # (Auto) 2.0 K/uL (1.0-4.3) 09/27/18 11:26 [place] # (Auto) 0.4 K/uL (0.0-0.8) 09/27/18 11:26 Eos # (Auto) 0.3 K/uL (0.0-0.7) 09/27/18 11:26 Baso # (Auto) 0.1 K/uL (0.0-0.2) 09/27/18 11:26 Sodium 135 mmol/L (132-148) 09/27/18 11:26 Potassium 4.5 mmol/L (3.6-5.2) 09/27/18 11:26 Chloride 97 mmol/L (98-107) L 09/27/18 11:26 Carbon Dioxide 25 mmol/L (22-30) 09/27/18 11:26 Anion Gap 17 (10-20) 09/27/18 11:26 BUN 17 mg/dL (7-17) 09/27/18 11:26 Creatinine 0.9 mg/dL (0.7-1.2) 09/27/18 11:26 Est GFR ( Amer) > 60 09/27/18 11:26 Est GFR (Non-Af Amer) > 60 09/27/18 11:26 POC Glucose (mg/dL) 271 mg/dL (65-110) H 09/29/18 16:32 Random Glucose 370 mg/dL (65-105) H D 09/27/18 11:26 Calcium 9.8 mg/dl (8.6-10.4) 09/27/18 11:26 Total Bilirubin 0.6 mg/dL (0.2-1.3) 09/27/18 11:26 AST 21 U/L (14-36) 09/27/18 11:26 ALT 12 U/L (9-52) 09/27/18 11:26 Alkaline Phosphatase 110 U/L (38-126) 09/27/18 11:26 Total Protein 7.9 g/dL (6.3-8.3) 09/27/18 11:26 Albumin 4.4 g/dL (3.5-5.0) 09/27/18 11:26 Globulin 3.4 gm/dL (2.2-3.9) 09/27/18 11:26 Albumin/Globulin Ratio 1.3 (1.0-2.1) 09/27/18 11:26 Urine Color Straw (YELLOW) 09/27/18 12:36 Urine Clarity Clear (Clear) 09/27/18 12:36 Urine pH 7.0 (5.0-8.0) 09/27/18 12:36 Ur Specific [place] 1.007 (1.003-1.030) 09/27/18 12:36 Urine Protein 2+ mg/dL (NEGATIVE) H 09/27/18 12:36 Urine Glucose (UA) 3+ mg/dL (Normal) H 09/27/18 12:36 Urine Ketones Negative mg/dL (NEGATIVE) 09/27/18 12:36 Urine Blood Negative (NEGATIVE) 09/27/18 12:36 Urine Nitrate Negative (NEGATIVE) 09/27/18 12:36 Urine Bilirubin Negative (NEGATIVE) 09/27/18 12:36 Urine Urobilinogen Normal mg/dL (0.2-1.0) 09/27/18 12:36 Ur Leukocyte Esterase Neg [place]/uL (Negative) 09/27/18 12:36 Urine WBC (Auto) 1 /hpf (0-5) 09/27/18 12:36 Urine RBC (Auto) < 1 /hpf (0-3) 09/27/18 12:36 Ur Squamous Epith Cells < 1 /hpf (0-5) 09/27/18 12:36 Hyaline Casts 0-2 /lpf (0-2) 09/27/18 12:36 - Hospital Course Hospital Course: PT was admitted and treated for diabetic foot and uncontrolled sugars meds adjusted pt was given IV abx toe pain resolved Discharge Exam - Eye Exam Eye Exam: Normal appearance - Respiratory Exam Respiratory Exam: Clear to PA & Lateral, NORMAL BREATHING PATTERN - GI/Abdominal Exam GI & Abdominal Exam: Normal Bowel Sounds, Soft. absent: Mass, Tenderness (left hallux not tender, redness 90% resolved) Discharge Plan - Follow Up Plan Condition: GOOD
[2018-09-30] MEDS ORDERED: cefTRIAXone IV 1 gm in Dextros 50 ML IVPB SCH (10:00)
== END 2018-09-29 18:58 | disposition home or self-care (01) ==
LOC: C.ER 09:56 → C.9E 12:45 → C.5S 13:20
PROVIDERS: ADMIT Internal Medicine; ATTEND Internal Medicine
DX: L03.032 Cellulitis of left toe (principal); E10.65 Type 1 diabetes mellitus with hyperglycemia; I10 Essential (primary) hypertension; I25.10 Atherosclerotic heart disease of native coronary artery without angina pectoris; Z79.4 Long term (current) use of insulin; Z95.5 Presence of coronary angioplasty implant and graft; E78.00 Pure hypercholesterolemia, unspecified
CPT/HCPCS: 71045; 73660; 80053; 81001; 82948; 85025; 87040; 96360; 96374; 97116; 97162; 99285; G8978; G8979; J0696; J1650; J2270; J3370; J7030; J7040